=== PATIENT | female | born 2005 | race Caucasian/White ===

== ENCOUNTER 2024-05-08 09:39 | Outpatient (AMB) | payer BC, SELFPAY ==
--- NOTE | 2024-05-08 09:42 | A.OFFVIS_ITS ---
Vital Signs 05/08/24 09:44 Height 5 ft 5 in Weight 190 lb BMI 31.6 BP 114/70 Blood Pressure Location Lt brachial Position Sitting Pulse 83 Pulse Source Pulse Oximeter Pulse Oximetry (%) 97 Oxygen Delivery Method Room Air Intake Visit Reasons: Arthritis Intake Note: Patient presents today for back pain follow up, she would like a refill of Meloxicam today, she is having flare ups. Allergies No Known Allergies Allergy (Verified 05/08/24 09:51) HPI HPI Arthritis: Details: MS 30 minutes. She stopped practising for dancing that has improved back pain. Activity improves back pain. Prolonged rest worsens back pain. She had exacerbation of back pain after new year's when she arched back for [employer] video. She took meloxicam 15 mg with benefit. She is currently not self medicating. She did not complete physical therapy. She had an MRI pelvis over the summer but I do not have results. PFSH Medical History (Updated 05/08/24 @ 16:19 by Micheal Cooney MD) Back pain Surgical History (Updated 05/08/24 @ 09:54 by Pamela Macario CMA) [place] teeth removed Review of Systems Const All systems reviewed & are unremarkable except as noted in HPI and below Physical Exam Vital Signs: Last Vital Signs Pulse 83 05/08/24 09:44 BP 114/70 05/08/24 09:44 Pulse Ox 97 05/08/24 09:44 Oxygen Delivery Method Room Air 05/08/24 09:44 BMI result Body Mass Index 31.6 Const Other: General: Comfortable CVS: RRR Respiratory: clear to auscultation bilaterally. Good respiratory effort Skin: No lesions seen MSK: Tender to palpate lower lumbar spinous process and paraspinal muscles. Good lumbar flexion. No SI joint tenderness. Negative CONNIE. No synovitis. Good range of motion of upper extremities and lower extremities. Assessment & Plan Assessment & Plan (1) Back pain: Comment: Inflammatory back pain, HLA B27 positive with normal inflammatory markers. She response to meloxicam 15 mg prn. X-ray SI joints are normal. She had an MRI pelvis over the summer, which I do not have results of for further workup of axial inflammatory arthritis. She also has sacralization of right L5 transverse process and localized pain to paraspinal muscles suggesting myofascial strain, which could be contributing to back pain. She has not completed PT. Code(s): M54.9 - Dorsalgia, unspecified Category: Medical Qualifiers: Back pain location: low back pain Chronicity: chronic Back pain laterality: bilateral Sciatica presence: without sciatica Qualified Code(s): M54.50 - Low back pain, unspecified; G89.29 - Other chronic pain Plan: I will check inflammatory markers this visit PT ordered for back strengthening She will use meloxicam 15 mg daily PRN back pain Apply heat to back daily Return to clinic in 3 months Orders: Orders PT Evaluation and Treatment Today M54.9 - Dorsalgia, unspecified C Reactive Protein Today M54.9 - Dorsalgia, unspecified Alanine Aminotransferase Today M54.9 - Dorsalgia, unspecified Aspartate Amino Transferase Today M54.9 - Dorsalgia, unspecified Complete Blood Count Auto Diff Today M54.9 - Dorsalgia, unspecified Creatinine Today M54.9 - Dorsalgia, unspecified Erythrocyte Sedimentation Rate Today M54.9 - Dorsalgia, unspecified Medications: New meloxicam 15 mg PO DAILY PRN 30 tabs 1RF back pain Coding Level of Care Code Est Pt Level 4 (08438) Complex EM visit Add On G2211 Diagnoses Chronic bilateral low back pain without sciatica M54.50; G89.29 Back pain location: low back pain Chronicity: chronic Back pain laterality: bilateral Sciatica presence: without sciatica
[2024-05-08 09:44] VITALS: BP 114/70; PULSE 83; O2SAT 97; BMI 31.6
== END 2024-05-08 10:34 | disposition home or self-care (01) ==
PROVIDERS: PCP Nurse Practitioner Adult Health; Visit Provider Internal Medicine Rheumatology
DX: M54.50 Low back pain, unspecified (principal); G89.29 Other chronic pain
CPT/HCPCS: 99214

== ENCOUNTER 2024-05-08 09:39 | Outpatient (REF) | payer BC, SELFPAY ==
[2024-05-08 17:22] LABS: MANUAL DIFF FLAG NO
[2024-05-08 17:29] LABS: Basophils Percent Auto 0.5 % (0-2); Eosinophils Absolute Auto 0.1 X10*3/uL (0.0-0.4); Eosinophils Percent Auto 1.2 % (0-4); Hematocrit 40.4 % (37.0-47.0); Hemoglobin 13.4 g/dl (12.0-16.0); Imm Gran Abs Auto 0.06 X10*3/uL (0.00-0.03); Imm Gran Pct Auto 0.8 % (0.0-0.4); Lymphocytes Absolute Auto 2.5 X10*3/uL (1.2-4.9); Lymphocytes Percent Auto 32.3 % (20-40); Mean Corpuscular HGB Conc 33.2 g/dl (31.0-35.0); Mean Corpuscular Hemoglobin 28.7 pg (27.0-33.0); Mean Corpuscular Volume 86.5 fL (80.0-98.0); Mean Platelet Volume 10.8 fL (9.4-12.3); Monocytes Absolute Auto 0.5 X10*3/uL (0.1-1.2); Monocytes Percent Auto 6.2 % (2-11); Neutrophils Absolute Auto 4.5 x10*3/uL (2.0-8.3); Platelet Count 301 X10*3/uL (160-400); Red Blood Count 4.67 X10*6/uL (4.20-5.50); Red Cell Distribution Width 13.1 % (11.0-16.0); White Blood Count 7.6 X10*3/uL (4.8-10.8)
[2024-05-08 17:37] LABS: Alanine Aminotransferase 11 U/L (0-31); Aspartate Amino Transferase 19 U/L (5-31); C Reactive Protein 0.92 mg/dL (< or = 0.50); Estimated Glomerular Filt Rate > 60
[2024-05-08 18:09] LABS: Erythrocyte Sedimentation Rate 12 MM/HR (0-20)
== END 2024-05-08 09:40 | disposition home or self-care (01) ==
LOC: HO.HKASLDS 09:39
PROVIDERS: PCP Nurse Practitioner Adult Health; Visit Provider Internal Medicine Rheumatology
DX: M54.9 Dorsalgia, unspecified (principal)
CPT/HCPCS: 36415; 82565; 84450; 84460; 85025; 85652; 86140

== ENCOUNTER 2024-06-22 10:00 | Outpatient (RCR) | payer BC, SELFPAY ==
--- NOTE | 2024-06-08 11:42 | MHC.PT.EP ---
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 Cooney[facility] for treatment of dorsalgia. Date of referral , Dorsalgia referred to PT by Micheal Cooney date of referral 05/08/2024 Pt currently taking meloxicam prn due to elevated inflammatory markers, is being followed due to family history. Pt had xrays (see results above). Pt exhibits (+) lumbar instability testing, hypermobility of the L/S, tightness and decreased mobility of upper back musculature. Pt reports recent strain of left lower back with sx on/off radiating to height of her buttocks following lifting a toddler while babysitting. Pt would benefit from attending skilled PT services 1-2x/week x 3-4 weeks to implement a lumbar stab program, self care, and HEP program. Post evaluation, body mechanics were reviewed, written HEP for gentle table slides: trunk flexion/scaption, posterior pelvic tilts in sitting and hooklying were issued x 2 sets 5R x 3 sec hold, along with kneeling hip flexor stretch, prone quad stretch with strap. Pt verbalized positive response and carryover post instruction/education. Due to previous history of having therapy and familiarity with exercise program pt may not need many visits to achieve her goals. Frequency and Duration: The patient will be seen 1-2x/week x 3-4 weeks Short Term Goals: 1. Initiate self care/HEP program management. 2. Pt will demonstrate body mechanics awareness in regard to ADLS/IADLs. 3. Pt will initiate strength of lumbar hip ext by 4+/5. 4. Increase hip flexor flexibility by 50%. Radiation Therapy Technologist Goals: 1. Negative lumbar instability testing. 2. Strength hip abductors to 5/5. 3. Pt will increase strength hip ext 5/5 B. 4. Pt will report 75% pressure in back pain with ADLs/IADLS. Treatment Plan: Modalities to reduce pain, spasms and effusion. Manual therapy to restore motion and function. Therapeutic exercise to improve strength and flexibility. Neuromuscular re-education for posture and balance. Therapeutic activities to return to functional activities of daily living. Electronically signed by: Liat Menard PT, DPT Please sign and return to therapist. Thank you for your referral.
== END 2025-01-17 15:07 | disposition home or self-care (01) ==
LOC: HO.PTWFD 10:00
PROVIDERS: PCP Nurse Practitioner Adult Health; Visit Provider Internal Medicine Rheumatology
DX: M54.9 Dorsalgia, unspecified (principal)
CPT/HCPCS: 97110; 97161; 97535

== ENCOUNTER 2024-08-15 09:01 | Outpatient (AMB) | payer BC, SELFPAY ==
--- NOTE | 2024-08-15 09:05 | MHC.OFFVIS ---
Vital Signs 08/15/24 09:08 Height 5 ft 5 in Weight 205 lb 11.06 oz BMI 34.2 BP 140/70 H Blood Pressure Location Rt brachial Position Sitting Pulse 76 Pulse Oximetry (%) 100 Oxygen Delivery Method Room Air Intake Visit Reasons: 3 mo follow up Intake Note: Patient presents today for back pain follow up. 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 She feels increased pain after baby-sitting. She has to lift a 3-year-old who weighs 50 lb repetitively. Morning stiffness is none. She does not have an nocturnal back pain. Increased pain with prolonged standing. She feels pain when she is standing for a long period of time in the mall. 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 She initially started physical therapy but due to [facility] physical therapy and [place] location being changed to [place] she was unable to continue. She sometimes has left SI joint pain. She denies joint swelling, dactylitis, iritis, bloody stools. [facility] Medical History Back pain Surgical History [place] teeth removed Review of Systems Const All systems reviewed & are unremarkable except as noted in HPI and below Physical Exam Vital Signs: Last Vital Signs Pulse 76 08/15/24 09:08 BP 140/70 H 08/15/24 09:08 Pulse Ox 100 08/15/24 09:08 Oxygen Delivery Method Room Air 08/15/24 09:08 BMI result Body Mass Index 34.2 Const Other: General: Comfortable CVS: RRR Respiratory: clear to auscultation bilaterally. Good respiratory effort Skin: No lesions seen MSK: No tenderness of lumbar spinous process or paraspinal muscles. No tenderness of thoracic spinous process or cervical spinous process. Normal lumbar flexion. No SI joint tenderness. Negative CONNIE. Normal range of motion of cervical spine. No synovitis. Normal range of motion of upper extremities and lower extremities. Assessment & Plan Assessment & Plan (1) Back pain: Comment: Likely multifactorial to L5-S1 sacralization, myofascial strain and mild activity from ankylosing spondylitis (mild inflammatory back pain, HLA B27 positive with recent development of mild elevation in CRP on labs from April 2024). Currently her back pain is aggravated with repetitive lifting of toddler. I recommend conservative management with physical therapy to improve back strength and for her to use meloxicam more regularly to control back pain. Previously she had normal inflammatory markers. She has response to meloxicam 15 mg prn. X-ray SI joints are normal. She had an MRI pelvis over the summer, which I do not have results of for further workup of axial inflammatory arthritis. She also has sacralization of right L5 transverse process. Code(s): M54.9 - Dorsalgia, unspecified Category: Medical Qualifiers: Back pain location: low back pain Chronicity: chronic Back pain laterality: bilateral Sciatica presence: without sciatica Qualified Code(s): M54.50 - Low back pain, unspecified; G89.29 - Other chronic pain Plan: I will check inflammatory markers this visit PT ordered for back strengthening to be done in [place] per patient's request She will use meloxicam 15 mg daily PRN back pain. I will check kidney and liver function next visit for drug monitoring on chronic NSAID MRI pelvis report requested Return to clinic in 3 months (2) Ankylosing spondylitis: Code(s): M45.9 - Ankylosing spondylitis of unspecified sites in spine Category: Medical Qualifiers: Ankylosing spondylitis location: unspecified site of spine Qualified Code(s): M45.9 - Ankylosing spondylitis of unspecified sites in spine Plan: See above Orders: Orders Erythrocyte Sedimentation Rate Today Z79.899 - Other pen[facility]iary (current) drug therapy C Reactive Protein Today Z79.899 - Other long term care phlebotomist (current) drug therapy Coding Level of Care Code Est Pt Level 4 (17069) Complex EM visit Add On G2211 Diagnoses Chronic bilateral low back pain without sciatica M54.50; G89.29 Back pain location: low back pain Chronicity: chronic Back pain laterality: bilateral Sciatica presence: without sciatica Ankylosing spondylitis, unspecified site of spine M45.9 Ankylosing spondylitis location: unspecified site of spine
[2024-08-15 09:08] VITALS: BP 140/70; PULSE 76; O2SAT 100; BMI 34.2
--- OUTSIDE RECORDS SUMMARY | 2024-08-15 09:44 | XMS_ITS | Clinical Summary ---
Author Organization [facility] Address [address] [place] [phone] Phone Care Team Providers Care Go Cart Mechanic Name Role Phone Unavailable Primary Care Provider Unavailabl e Allergies No known active allergies Medications AMITIZA 24 MCG capsule Take 1 tablet by mouth 2 (two) times a day. 05/19/19 19 Active bisacodyl 5 MG EC tablet Take 2 tablets prior to drinking MiraLAX for cleanout 06/26/19 20 Active ondansetron ODT 4 MG disintegrating tablet 06/22/19 20 Active diclofenac 75 MG EC tablet 07/27/19 21 Active diclofenac 75 MG EC tablet Take 75 mg by mouth. 07/01/19 21 Active etonogestrel-ethin yl estradiol 0.12-0.015 MG/24HR vaginal ringIndications:En counter for initial prescription of vaginal ring hormonal contraceptive Insert vaginally and leave in place for 3 consecutive weeks, then remove for 1 week. 1 each 12 01/16/20 22 Active spironolactone 100 MG tabletIndications: Acne vulgaris TAKE ONE TABLET BY MOUTH DAILY. 30 tablet 5 01/27/20 22 Active Active Problems Problem Noted Date Diagnosed Date Sprain of calcaneofibular ligament of right ankl e 12/09/2020 Overview (06/27/2021): also deltoid ligament, persisting, inadequate splinting. Seen by sports medicine fall 2020 and now in a lace-up ankle boot and back to dance 03/2021 after completing PT for this over the fall Assessment & Plan (12/09/2020 11:46 AM EDT): Needs to go to PT, use air cast for now, recheck 2-3 weeks. No dancing until recheck. Use ice, motrin for pain Oligomenorrhea 11/09/2018 Overview (11/09/2018): Likely due to PCOS, on OCPs. Assessment & Plan (06/10/2019 9:38 PM EST): Doing well on OCPs, has refills to continue on this mediation regime at this time, f/u if sx change/worsen PRN. Irritable bowel syndrome with constipation 08/06 Overview (06/10/2019): Followed by GI since 01/2018. Last seen 07/14/2018. Labs normal. Chronic constipation and functional dyspepsia also contributing. Hyoscyamine used prn. On 07/31/2018 hypnotherapy recommended, as medications were ineffective. Pt saw Dr. Knott for this but not effective. Told to follow up with GI but has not yet. Feels she is on medications which usually don't help but hasn't pursued further evaluation/treatment. Assessment & Plan (06/10/2019 9:29 PM EST): Overdue for follow up - needs to see GI back re: this ongoing concern, mom agreeable to plan. Assessment & Plan (02/08/2019 3:15 PM EDT): IBS doing better, with self hypnosis and amitiza Assessment & Plan (01/19/2019 5:09 PM EDT): Has been in good control Assessment & Plan (11/23/2018 9:35 AM EDT): Doing well. Assessment & Plan (11/08/2018 5:13 PM EDT): Keep up the good work. You are improving. Practice with your new recording. Keep a Comfort Diary. For cramps you can take mint drops or mint tea. Take the probiotic Assessment & Plan (10/18/2018 5:31 PM EDT): Is intricately connected to school anxiety. Worries about having to poop and/or being sick in school. Instructions: Practice with Your hypnosis recording daily. Assessment & Plan (09/19/2018 2:59 PM EDT): Not in good control, probably because of anxiety. I would begin an antacid, famotidine, twice a day, because of the heartburn pain you also get, and because famotidine has found to be effective for IBS. Also answer these questions: 1. How will your life be different when you are no longer having those stomach pains? 2. In what ways can you be kind to yourself? 3. How does your body feel when you are happy/relaxed? Keep a stool calendar. Stop miralax. Take Flaxseed oil (mix with yoghurt, keep in fridge), 1 tbspn, and flaxseed, one tsp daily. And take Align, 1 cap a day. Acne vulgaris 10/18/2017 Overview (06/09/2018): S/P Derm Consult for Acne. S/PMinocin 100mg BID, Tretinoin 0.025% qhs, Duac qam to face and qhs to torso recommend but burned so not taking. 05/03/2017: OCP started. No improvement. Referred back to derm 05/2018. Assessment & Plan (12/26/2020 6:14 PM EDT): OCP not a good option because forgets to take them. Nexplanon side effect profile is undesirable for her needs. After extensive discussion, we decided on NuvaRing. Discussed risks, benefits, alternatives, proper use. Urine hcg negative. Can start NuvaRing on the Tuesday following next menses. F/u in 2 mo. Assessment & Plan (11/09/2018 9:23 AM EDT): Will change her OCP to higher estrogen. Will add spironolatone (to block testosterone). Will do adapalene cream (instead of gel), but if not covered, coupon given to mom. Advised to use non-comedogenic make-up. F/u with PCP, but can come back to derm clinic if needed. Assessment & Plan (11/08/2018 5:12 PM EDT): To See Nataliia tomorrow Assessment & Plan (09/19/2018 3:02 PM EDT): Has tried many creams, the pill, still an issue ?because of anxiety. See Nataliia Galicia Assessment & Plan (06/09/2018 8:33 AM EST): Referred to Derm. Assessment & Plan (03/03/2018 8:27 AM EST): Start OCP Assessment & Plan (02/14/2018 3:54 PM EDT): Consult for OCP if desired. Generalized anxiety disorder 08/19/2017 Overview (07/21/2018): S/P therapy and Prozac [id number] (discontinued in the summer 2017 by Carol because she was feeling better), continued to do well with start of high school so stayed off until 06/2018 when family requested a restart due to increasing anxiety. Prozac was prescribed again on 06/27/2018, 10 mg daily for a week then increased to 20mg daily. Therapy was also restarted at [facility] ([place]). Carol requested a change in medication on 07/21/2018 due to intolerance (made it difficult to concentrate, messes with my head as well as worsening abd pain and nausea) and ineffectiveness. Plan is to decrease Prozac to 10mg for 5 days then stop and start Zoloft 25mg. Assessment & Plan (06/10/2019 9:36 PM EST): Not currently on any medication and negative screen today - has therapist (same as noted) whom she sees for regular therapy. Continue to follow up with therapist. Has failed on several medications so if wishes to star medication again would pursue medication evaluation and look for psychiatrist to manage given issues in the past. Assessment & Plan (02/09/2019 11:35 AM EDT): Did not tolerate non SSRI antidepressant either with apparently dramatic side effects. Now doing better now that is not in school. While not optimal, she does socialize in dance class, and will continue her education. Assessment & Plan (01/23/2019 1:14 PM EDT): Freezes when going to school but unaware of the thoughts and feelings that go with it. Mostly is school phobia Since had trouble with SSRI's will begin a non SSRI, effexor, follow up in two weeks. Discussed. Should see her in two weeks. Assessment & Plan (11/23/2018 2:43 PM EDT): Doing great now off of all meds, had side effects with 3 SSRI's. Though has a positive SCARED. Suggested gradual re-emersion in thoughts of school, beginning with the parts she LIKES: Seeing friends, bhutanese class, lunch. Would suggest she do her reading. Practice Your meditations. See [facility] Assessment & Plan (11/08/2018 5:16 PM EDT): You had side effects with meds so try fish oil, several caps a day with food, a natural supplement that can help mood, and see [facility], practice relaxation, get fresh air, exercise, remember how you conquered the roller coasters at [facility]! Assessment & Plan (10/18/2018 5:33 PM EDT): No real change on lexapro, but better since is out of school. Will have to learn to embrace anxiety like an unwanted but ever present investigations manager, and go to school to really get over it. Addressing IBS with behavioral means can be a back door way of helping with anxiety Assessment & Plan (09/19/2018 3:01 PM EDT): Having side effects on zoloft, and anxiety not under control. Will switch to lexapro. Stop zoloft. Will call therapist. Think of a name to call your anxiety. Read Carol Plays with her anxiety Parents to read Anxious Kids, Anxious Parents both by Cathy Zavaleta and Jakub Rhodes Assessment & Plan (07/21/2018 2:36 PM EDT): Decrease Prozac to 10mg for 5 days then stop and start Zoloft 25mg . Phone update with me 08/01/2018. F/U to be determined after that. Continue regular therapy. Assessment & Plan (06/27/2018 2:12 PM EST): Back in therapy in [place], going every other to every week. Will restart Fluoxetine at 10 mg for 5 days and then increase to 20,g will keep appointment with Dr. Toro on 07/21/18 Assessment & Plan (02/14/2018 3:55 PM EDT): Observe off medication and without therapy. Assessment & Plan (10/18/2017 5:39 PM EDT): Continue Prozac 20 mg 1.5 tab daily. Find a new therapist. Overweight 12/19/2012 Overview (10/18/2017): Overweight (278.02) Onset: 12/19/2012 Added by: Claire Toro Assessment & Plan (02/09/2019 11:36 AM EDT): She and mom don't understand why she is overweight since she is so active in dance. I explained that exercise only contributes a third to one's wt, diet accounts for 2/3. Nutritional counseling given. Assessment & Plan (11/09/2018 9:26 AM EDT): Needs labs at next well visit - glucose/hgb A1c, cholesterol, possible AST/ALT. Discussed with mom and Dr. Emeli esteban. Assessment & Plan (02/14/2018 3:56 PM EDT): Discussed diet and exercise. Resolved Problems Problem Noted Date Diagnosed Date Resolved Date Chronic low back pain without sciatica 07/21/2019 12/08/2021 Overview (06/27/2021): Seen by sports medicine Fall 2020 - worsened by dance, better with rest, working with PT minimally for this - had MRI done by sports medicine, has chronically been on and off, no sciatica or numbness/tingling/weakness Refused influenza vaccine 03/29/2019 Overview (06/10/2019): Refused again at 05/2019 School phobia 01/19/2019 12/08/2021 Overview (06/10/2019): Not attending school (noted by Dr. Knott 12/2018) Reported started at [facility] fall 2018, had done online program briefly, doing well 05/2019 (at ) Assessment & Plan (02/08/2019 3:14 PM EDT): Was considering [facility], but now taking on line HS, so issue irrelevant Assessment & Plan (01/19/2019 5:10 PM EDT): I feel [facility] would be a good alternative Other constipation 02/14/2018 Overview (08/06/2018): Diagnosed 01/2018. ED visit and GI consulted over the phone, recommended Miralax cleanout 16 caps in 64 ounces over 4-6 hours. Then seen by GI on 04/17/2018 for consult. Abd xray ordered due to abd tenderness, TSH, celiac labs ordered. Hyoscyamine 0.125 BID, miralax 1 cap BID, Ex Lax 1 sq BID, increased fiber recommended. ON 05/02 recurrence of abd pain and stool impaction so repeat cleanout with Miralax ordered CBC, amylase, lipase, ESR, CRP, CMP ordered. Admitted on 06/01 for Golytely cleanout and EGD/Colonoscopy, which was unremarkable. At recheck 07/14/2018 again impacted and Miralax cleanout recommended. Assessment & Plan (02/08/2019 3:16 PM EDT): Makes a drink of miralax when does not have bm Assessment & Plan (04/04/2018 12:26 PM EST): Recheck KUB consider Go-Lytely clean out in hospital. Assessment & Plan (03/28/2018 12:20 PM EST): Lactulose, Benefiber, increase fiber in diet. Call in 2 weeks. Assessment & Plan (02/14/2018 3:55 PM EDT): Use Miralax 1 capful twice daily for up to 6 days then consistently 1 cap daily for at least 6 weeks. Menorrhagia with regular cycle 02/14/2018 12/08/2021 Overview (06/09/2018): Hgb normal 02/14/2018. OCP's started 02/2019. Assessment & Plan (12/26/2020 6:14 PM EDT): OCP not a good option because forgets to take them. Nexplanon side effect profile is undesirable for her needs. After extensive discussion, we decided on NuvaRing. Discussed risks, benefits, alternatives, proper use. Urine hcg negative. Can start NuvaRing on the Tuesday following next menses. F/u in 2 mo. Assessment & Plan (11/08/2018 5:13 PM EDT): Remember to take your OCP's, but if you want, I can prescribe Depo, or consider Nexplanon. Assessment & Plan (06/09/2018 8:34 AM EST): Continue OCP. Assessment & Plan (02/14/2018 3:57 PM EDT): Check Hgb, consider further workup if low, consider OCP. Thoracic spine pain 10/27/2017 12/09/19 22 Overview (02/14/2018): Seen by ortho 02/2017. Xray ok. Aggressive PT recommended. She did go to PT and it helped. Seeing chiropractor now. Assessment & Plan (02/14/2018 3:56 PM EDT): Continue with chiropractor. Acne 10/18/2017 10/18/2017 Overview (10/18/2017): Derm Consult for Acne. Starting Minocin 100mg BID, Tretinoin 0.025% qhs, Duac qam to face and qhs to torso. Also recommended visit here to discuss OCP's. Immunizations Immunization Administration Dates Next Due COVID-19 Pfizer, monovalent, 12+ years 1,08/26/2020 COVID-19 Pfizer, sylvie-sucros e, 12+ years 12/08/2021(Deferred: Patient decision) DTaP 5 06/25/2008, 5,2003,10/01,2003 H1N1 07/01/2009 HPV Vaccine 9 Valent 06/27/2017,12/21/2016 Hep A, ped/adol 08/29/2012,07/03/2010 Hep B, ped/adol 03/06/2004,2003,2003 Hib (PRP-T) 09/02/2004, 4,2003,08/01 IPV 06/23/2007, 4,2003,08/01 Influenza, injectable, triva lent, preservative free 02/11/2005,04/22/2004,02/04/2004 MMR 06/25/2008,09/02/2004 Meningococcal B Trumenba 12/08/2021 Meningococcal Conj (Menactra) MCV4P 06/12/2020,0 12/16/2014 Pneumococcal Conjugate 06/03/2004,2003,2003,08/01 Tdap 12/16/2014 Varicella 06/23/2007,06/03/2004 Family History Medical History Relation Name Comments Anxiety disorder Father's Sister Depression Father's Sister Hearing loss Maternal Grandfather Hyperlipidemia Maternal Grandfather Hypertension Maternal Grandfather Obesity Maternal Grandfather Substance abuse Maternal Grandfather Thyroid disease Maternal Grandfather Diabetes Maternal Grandmother Hearing loss Maternal Grandmother Hyperlipidemia Maternal Grandmother Hypertension Maternal Grandmother Obesity Maternal Grandmother Allergic rhinitis Mother Heart disease (Premature) Mother's Brother Substance abuse Mother's Brother Allergic rhinitis Mother's Sister Diabetes Paternal Grandfather Hearing loss Paternal Grandfather Heart disease (Premature) Paternal Grandfather Hyperlipidemia Paternal Grandfather Hypertension Paternal Grandfather Obesity Paternal Grandfather Thyroid disease Paternal Grandfather Diabetes Paternal Grandmother Hyperlipidemia Paternal Grandmother Hypertension Paternal Grandmother Obesity Paternal Grandmother Relation Name Status Comments Father's Sister Maternal Grandfather Maternal Grandmother Mother Mother's Brother Mother's Sister Paternal Grandfather Paternal Grandmother Social History Tobacco Use Types Packs/Day Years Used Date Smoking Tobacco: Never Smokeless Tobacco: Never Alcohol Use Standard Drinks/Week Comments No 0 (1 standard drink = 0.6 oz pur e alcohol) Hunger/Food Answer Date Recorded In the last 12 months, did y ou or your family ever eat less than you felt you should because there wasn't enough money for food? No 12/08/2021 Stable Housing Answer Date Recorded Are you worried that in the next 2 months you may not have stable housing? No 12/08/2021 Transportation Concerns Answer Date Rec orded In the last 12 months, have you or your family ever had to go without healthcare because you didn't have a way to get there? No 12/08/2021 Hazards in Home Answer Date Recorded Think about the place you li ve. Do you have problems with any of the following? Pests (mice or roaches), mold, no/not working smoke detectors, water leaks, no window guards. No 2021 Financing Utilities Answer Date Recorde d In the last 12 months, has t he electric, gas, oil, or water company threatened to shut off your services in your home? No 12/08/2021 Safety at Home Answer Date Recorded Are you or your family worried about feeling saf e in your home? No 12/08/2021 Outside Support Answer Date Recorded Do you feel that you need mo re support from other people or programs to help you care for yourself or your family? No 12/08/2021 Understanding Health Concerns Answer Da te Recorded Do you need help understandi ng your or your child's healthcare needs (diagnosis, medications, plan, etc.)? No 12/08/2021 Financing Health Concerns Answer Date R ecorded In the last 12 months, was t here a time when your child needed to see a doctor or get medications or supplies but could not because of cost? No 12/08/2021 Missing School or Work Answer Date Mack rded Did you or your child miss s chool or work because of a health problem that could have been avoided? No 12/08/2021 Comments No Sex and Gender Information Value Date Recorded Sex Assigned at Female 06/12/2020 10:04 PM EST Legal Sex Female 6:27 PM EDT Gender Identity Female 06/12/2020 10:04 PM EST Sexual Orientation Straight 06/12/2020 10 :04 PM EST Last Filed Vital Signs Vital Sign Reading Time Taken Comments Blood Pressure 116/70 12/08/2021 8:17 AM EDT Pulse 96 12/08/2021 8:17 AM EDT Temperature 36.7 ??C (98.1 ??F) 12/08/2021 8:17 AM ED T Respiratory Rate - - Oxygen Saturation 99% 07/21/2018 1:52 PM EDT Inhaled Oxygen Concentration - - Weight 85.8 kg (189 lb 3.2 oz) 12/08/2021 8:17 A M EDT Height 165.1 cm (5' 5 ) 12/08/2021 8:17 AM EDT Body Mass Index 31.48 12/08/2021 8:17 AM EDT Plan of Treatment Health Maintenance Due Date Last Done Comments Men B Vaccine (2 of 2 - Trum enba SCDM 2-dose series) 06/10/2022 12/08/2021 Influenza Vaccines (#1) 2023 02/12/20, 04/22/2004, 02/04/2004 COVID-19 Vaccine (3 - 2023-2 5 season) 2023 09/16/2020, 08/26/2020 DTaP,Tdap,and Td Vaccines (7 - Td or Tdap) 12/16/2024 12/16/2014, 06/25/2008, 12/29/2004, Additional history exists Hepatitis B Vaccines Completed 03/06/2004, 2003, 2003 Pneumococcal Vaccine Completed 06/03/2004, 2003, 2003, Additional history exists HIB Vaccines Completed 09/02/2004, 11/23, 2003, Additional history exists IPV Vaccines Completed 06/23/2007, 02/23, 2003, Additional history exists Varicella Vaccines Completed 06/23/2007, 06/03/2004 MMR Vaccines Completed 06/25/2008, 09/02/2004 Hepatitis A Vaccines Completed 08/29/2012, 07/04/19 11 HPV Vaccines Completed 06/27/2017, 12/21/2016 Meningococcal Vaccine Completed 06/12/2020, 015 Procedures * Due to [place] [employer] law, this organization might not be sharing sensitive test results. Procedure Name Priority Date/Time Associated Diagnosis Comments CHLAMYDIA AND GONORRHEA, AMPLIFIED Routine 12/08/2021 9:15 AM EDT Encounter for screening examination for chlamydial infection from Last 3 Months or Most Recently Relevant to Health Maintenance Results * Due to [place] [employer] law, this organization might not be sharing sensitive test results. * Chlamydia and Gonorrhoea, Amplified (12/08/2021 9:15 AM EDT) Chlamydia Trachomatis, DNA Probe NEGATIVE (NEG) [facility] Comment: No Chlamydia Trachomatis RNA detected in this patient's sample ? (REFERENCE RANGE/NORMAL VALUE: NOT DETECTED) ? Note: This test uses survey analyst- mediated amplification method to detect rRNA from C. Trachomatis URINE GC AMP PROBE NEGATIVE (NEG) [facility] Comment: No Neisseria Gonorrhoeae RNA detected in this patient's sample ? (REFERENCE RANGE/NORMAL VALUE: NOT DETECTED) ? NOTE: This test uses survey analyst-mediated amplification method to detect rRNA from N.Gonorrhoeae. A negative result does not preclude infection. In the case of a negative urine result, testing of an endocervical(female) or urethral (male) specimen is recommended if there is high clinical suspicion of infection. Due to very high sensitivity of Nucleic Acid Amplification Test, false positive results may occur. Therefore, specimen handling is extremely important. In patients in whom the disease is unlikely, additional sample for testing should be considered after an initial positive result. The performance characteristics of this test have not been evaluated in children. The Aptima Combo2 assay is not intended for the evaluation of suspected sexual abuse or for other medico-legal indications. The ordering provider should assess if the patient had consensual sex without risk of sexual abuse. Consult the [facility] if needed. Contact phone number . Therapeutic failure or success cannot be determined with the Aptima Combo2 assay since nucleic acid may persist following appropriate antimicrobial therapy. The Centers for Disease Control and Prevention (CDC) recommends confirmatory retesting using culture or a different nucleic acid amplification test when positive results occur, if indicated. Testing performed or reported by [facility], a Service of [facility], [address] [place] [address] Evin Licea MD, Straightening Roll Operator [facility]# [id number] Urine (Urine) 12/08/2021 9:1 5 AM EDT 12/08/2021 7:58 PM EDT us Hilaria Nguyen MD LAB MICROBIOLOGY - GENERAL O RDERABLES Final Result [facility] from Last 3 Months or Most Recently Relevant to Health Maintenance Insurance [facility] HMO [facility] HMO
--- OUTSIDE RECORDS SUMMARY | 2024-08-15 09:44 | XMS_ITS ---
Author Name [facility] Organization Unknown History of Medication Use Medication Directions Dispensed Refills Start Date End Date Stat us senna (SENOKOT) 8.6 mg tablet Take 2 tablets by mouth daily 05/01/2024 active LINZESS 72 mcg Capsule capsule TAKE ONE CAPSULE BY MOUTH DAILY 04/23/2024 active linaCLOtide (LINZESS) 72 mcg Capsule Take 72 mcg by mouth daily 06/21/2023 04/23/2024 active imiquimod (ALDARA) 5 % cream 01/27/2023 active lubiprostone (AMITIZA) 24 MCG capsule TAKE ONE CAPSULE (24 MCG) BY MOUTH TWO TIMES A DAY WITH MEALS. 08/31/2021 active ELURYNG 0.12-0.015 mg/24 hr vaginal ring 05/22/2021 act carlos a etonogestreL-ethinyl estradioL (NUVARING) 0.12-0.015 mg/24 hr vaginal ring Insert vaginally and leave in place for 3 consecutive weeks, then remove for 1 week. 12/26/2020 12/27/2021 active diclofenac sodium 75 MG delayed release tablet 06/30/2020 active iron-vit C-vit D58-cvsma acid (IRON 100 PLUS) 580-565-14-1 cs-hf-wau-mg Tablet Take by mouth 06/09/2020 ac tive iron-vit C-vit U66-bofyz acid (IRON 100 PLUS) 474-948-90-1 xh-mp-msl-mg Tablet Take by mouth 06/09/2020 ac tive multivitamin-folic acid-biotin (GGTS-DIJI-WWWAC, BV-FN-ZQJNEX,) 400-2,000 mcg Tablet Take by mouth 06/09/2020 a ctive bisacodyL (DULCOLAX, BISACODYL,) 5 mg EC tablet Take 2 tablets prior to drinking MiraLAX for cleanout 06/26/2019 active spironolactone (ALDACTONE) 100 MG tablet 06/13/2019 active Problems Problem Status Onset Date Problem Type Date of Resolution Source Constipation, unspecified constipation type active EncounterDiagnosisAct C [facility] Encounters Encounter Type Encounter Reason Primary Diagnosis Location Date Ambulatory Constipation, unspecified Constipation, unspecified [facility] 07/02/2024 Ambulatory Constipation, unspecified Constipation, unspecified [facility] 05/01/2024 Ambulatory Constipation, unspecified Constipation, unspecified [facility] 10/21/2023 Ambulatory Constipation, unspecified Constipation, unspecified [facility] ([facility] 06/21/2023 [address]ulatory [facility] 12/16/2021 Ambulatory [facility] 05/25/2021 Care Team Organization Name Specialty Phone Email Start Date End Da te [facility] 06/21/2023 [facility] 06/21/2023 [facility] 12/24/2021
--- OUTSIDE RECORDS SUMMARY | 2024-08-15 09:44 | XMS_ITS | Encounter Summary ---
Author Organization [facility] Address [address] [place] [address] Phone Care Team Providers Care Building Coordinator Name Role Phone Hilaria Nguyen MD Primary Care Provider + [phone] Reason for Visit * Reason Comments Med Refill Encounter Details Date Type Department Care Team (Late st Contact Info) Description 09/07/2018 Refill [facility] - [place] [address] [place] [address] Claire Toro MD [address] [place] [address] Generalized anxiety disorder Social History Tobacco Use Types Packs/Day Years Used Date Smoking Tobacco: Never Smokeless Tobacco: Never Alcohol Use Standard Drinks/Week Comments No 0 (1 standard drink = 0.6 oz pur e alcohol) Comments No Sex and Gender Information Value Date Recorded Sex Assigned at Female 06/12/2020 10:04 PM EST Legal Sex Female 6:27 PM EDT Gender Identity Female 06/12/2020 10:04 PM EST Sexual Orientation Straight 06/12/2020 10 :04 PM EST documented as of this encounter Miscellaneous Notes * Telephone Encounter - Liz Kendall RN - 09/07/2018 9:55 AM EDT Transferred to Dr Knott per mom documented in this encounter Plan of Treatment Not on file documented as of this encounter Visit Diagnoses Diagnosis Generalized anxiety disorder documented in this encounter Care Teams Building Coordinator Relationship Specialty Start Date End Date Hilaria Nguyen MD [address] [place] [address] PCP - General Pediatrics 12/21/22 05/18/23 documented as of this encounter
--- OUTSIDE RECORDS SUMMARY | 2024-08-15 09:44 | XMS_ITS | Encounter Summary ---
Author Organization [facility] Address [address] [place] [address] Phone Care Team Providers Care Elevator Service Technician Name Role Phone Hilaria Nguyen MD Primary Care Provider + [phone] Reason for Visit * Reason Comments Med Refill Encounter Details Date Type Department Care Team (Late st Contact Info) Description 08/12/2018 Refill [facility] - [place] [address] [place] [address] Claire Toro MD [address] [place] [address] Generalized anxiety disorder Social History Tobacco Use [...] encounter Miscellaneous Notes * Telephone Encounter - Lesa Rashid LPN - 08/23/2018 11:44 AM EDT No f/up appt noted. LMOVM to mom's identified line requesting call office update and appt. * Telephone Encounter - Claire Toro MD - 08/18/2018 5:13 PM EDT I will refill but needs a recheck with me within 1 week. * Telephone Encounter - Liz Kendall RN - 08/17/2018 10:22 AM EDT Spoke with mom who reports that they tried to call on the but were unable to get through at that time. Called back another day and was told Dr Toro was on vacation for two weeks. Mom reports Carol is the same. No better. No worse Denies side effects. Mom also says she called about recommendations from GI regarding referral for hypnotism. I do not see any note in chart concerning this. Mom requesting referral to Dr Martir Centeno [facility] for hypnotism. #phone [phone] # fax [phone] . Mom requesting refill on Zoloft ( she has a few left). To Dr Toro for review tomorrow morning. * Telephone Encounter - Claire Toro MD - 08/16/2018 2:07 PM EDT Please get clinical update on how Carol is doing on the Sertraline 25mg. She did not call as instructed on 08/01/2018 as far as I can tell. She needs an appt with me before she runs out of medication. * Telephone Encounter - Liz Kendall RN - 08/14/2018 11:07 AM EDT It is not clear if Carol spoke with Dr Toro on 08/01/18 or not. ? Follow up needed. Request for refill to Dr Toro for review tomorrow. documented in this encounter Plan of Treatment Not on file documented as of this encounter Visit Diagnoses Diagnosis Generalized anxiety disorder documented in this encounter Care Teams Elevator Service Technician Relationship Specialty Start Date End Date Hilaria Nguyen MD [address] [place] [address] PCP - General Pediatrics 12/21/22 05/18/23 documented as of this encounter
--- OUTSIDE RECORDS SUMMARY | 2024-08-15 09:44 | XMS_ITS | Encounter Summary ---
Author Organization [facility] Address [address] [place] [address] Phone Care Team Providers Care Scale Adjuster Name Role Phone Hilaria Nguyen MD Primary Care Provider + [phone] Reason for Visit * Reason Onset Date Comments Med Refill 01/11/2021 Encounter Details Date Type Department Care Team (Late st Contact Info) Description 01/11/2021 Refill [facility] [address] [address] Abril Burnett NP Acne vulgaris Social History Tobacco Use Types Packs/Day Years Used Date Smoking Tobacco: Never Smokeless Tobacco: Never Alcohol Use Standard Drinks/Week Comments No 0 (1 standard drink = 0.6 oz pur e alcohol) Hunger/Food Answer Date Recorded In the last 12 months, did y ou or your family ever eat less than you felt you should because there wasn't enough money for food? No 06/12/2020 Stable Housing Answer Date Recorded Are you worried that in the next 2 months you may not have stable housing? No 06/12/2020 Transportation Concerns Answer Date Rec orded In the last 12 months, have you or your family ever had to go without healthcare because you didn't have a way to get there? No 06/12/2020 Hazards in Home Answer Date Recorded Think about the place you li ve. Do you have problems with any of the following? Pests (mice or roaches), mold, no/not working smoke detectors, water leaks, no window guards. No 2020 Financing Utilities Answer Date Recorde d In the last 12 months, has t he electric, gas, oil, or water company threatened to shut off your services in your home? No 06/12/2020 Safety at Home Answer Date Recorded Are you or your family worried about feeling saf e in your home? No 06/12/2020 Outside Support Answer Date Recorded Do you feel that you need mo re support from other people or programs to help you care for yourself or your family? No 06/12/2020 Understanding Health Concerns Answer Da te Recorded Do you need help understandi ng your or your child's healthcare needs (diagnosis, medications, plan, etc.)? No 06/12/2020 Financing Health Concerns Answer Date R ecorded In the last 12 months, was t here a time when your child needed to see a doctor or get medications or supplies but could not because of cost? No 06/12/2020 Missing School or Work Answer Date Mack rded Did you or your child miss s chool or work because of a health problem that could have been avoided? No 06/12/2020 Comments No Sex and Gender Information Value Date Recorded Sex Assigned at Female 06/12/2020 10:04 PM EST Legal Sex Female 6:27 PM EDT Gender Identity Female 06/12/2020 10:04 PM EST Sexual Orientation Straight 06/12/2020 10 :04 PM EST documented as of this encounter Miscellaneous Notes * Telephone Encounter - Heidy Morris LPN - 01/12/2021 2:23 PM EDT Portal message requesting refill spironolactone 100mg. EH documented in this encounter Plan of Treatment Not on file documented as of this encounter Visit Diagnoses Diagnosis Acne vulgaris Other acne documented in this encounter Care Teams Scale Adjuster Relationship Specialty Start Date End Date Hilaria Nguyen MD [address] [place] [address] PCP - General Pediatrics 12/21/22 05/18/23 documented as of this encounter
--- OUTSIDE RECORDS SUMMARY | 2024-08-15 09:44 | XMS_ITS | Encounter Summary ---
Author Organization [facility] Address [address] [place] [address] Phone Care Team Providers Care Crm Technical Lead Name Role Phone Hilaria Nguyen MD Primary Care Provider [phone] Encounter Details Date Type Department Care Team (Late st Contact Info) Description 11/16/2010 Conversion Encounter Pediatric [facility] Adolescent Medicine - [address] [address] Social History Tobacco Use Types Packs/Day Years Used Date Smoking Tobacco: Never Assessed Comments Unknown Sex and Gender Information Value Date Recorded Sex Assigned at Female 06/12/2020 10:04 PM EST Legal Sex Female 6:27 PM EDT Gender Identity Female 06/12/2020 10:04 PM EST Sexual Orientation Straight 06/12/2020 10 :04 PM EST documented as of this encounter Plan of Treatment Not on file documented as of this encounter Visit Diagnoses Not on filedocumented in this encounter Care Teams Crm Technical Lead Relationship Specialty Start Date End Date Hilaria Nguyen MD [address] [place] [address] PCP - General Pediatrics 12/21/22 05/18/23 documented as of this encounter
== END 2024-08-15 09:40 | disposition home or self-care (01) ==
LOC: HO.RHES 09:01
PROVIDERS: PCP Nurse Practitioner Adult Health; Visit Provider Internal Medicine Rheumatology
DX: M54.50 Low back pain, unspecified (principal); G89.29 Other chronic pain; M45.9 Ankylosing spondylitis of unspecified sites in spine
CPT/HCPCS: 99214

== ENCOUNTER 2024-08-15 09:01 | Outpatient (REF) | payer BC, SELFPAY ==
--- OUTSIDE RECORDS SUMMARY | 2024-08-15 10:54 | XMS_ITS | Encounter Summary ---
Author Organization [facility] Address [address] [place] [address] Care Team Providers Care Ambulette Driver Name Role Phone System, Provider Not In DO Primary Care Provider Unavailable Eda Hernandez TIER LIFT OPERATOR Primary Care Provider [phone] Reason for Visit * Reason Comments Medication Refill Encounter Details Date Type Department Care Team (Late st Contact Info) Description 07/01/2021 Refill [facility] G[facility]ology, [place] [address] [place] [address] Margarita French MD [address] [place] [address] Constipation, unspecified constipation type Social History Tobacco Use Types Packs/Day Years Used Date Smoking Tobacco: Never Smokeless Tobacco: Never Comments No Sex and Gender Information Value Date Recorded Sex Assigned at Not on file Legal Sex Female 9:56 AM EST Gender Identity Not on file Sexual Orientation Not on file documented as of this encounter Miscellaneous Notes * Telephone Encounter - Mar Gardiner RN - 07/02/2021 1:40 PM EST Last visit: 05/25/21 Next visit: 12/24/21 Weight: 84.8 kg Allergies: reviewed Current dose: Continue Amitiza 1 pill daily documented in this encounter Plan of Treatment Not on file documented as of this encounter Visit Diagnoses Diagnosis Constipation, unspecified constipation type documented in this encounter Care Teams Ambulette Driver Relationship Specialty Start Date End Date System, Provider Not In, DO PCP - General Family Medicine 05/12/2306/20 Eda Hernandez NP [address] [place] [address] PCP - General 06/21/23 documented as of this encounter
--- OUTSIDE RECORDS SUMMARY | 2024-08-15 10:54 | XMS_ITS | Encounter Summary ---
Author Organization [facility] Address [address] [place] [address] Care Team Providers Care Switching Operator Name Role Phone Abril Burnett NP Primary Care Provider [phone] Martir Knott MD Primary Care Provider [phone] System, Provider Not In DO Primary Care Provider Unavailable Eda Hernandez POLLUTION CONTROL ENGINEER Primary Care Provider [phone] Reason for Visit * Reason Comments Medication Refill Encounter Details Date Type Department Care Team (Late st Contact Info) Description 10/22/2019 Refill [facility] Gastroenterology, [place] [address] [place] [address] Margarita French MD [address] [place] [address] Constipation, unspecified constipation type Social History Tobacco [...] Telephone Encounter - Mar Gardiner RN - 10/22/2019 11:32 AM EDT Last visit: 10/02/19 Next visit: No appt booked at this time. Please call to book an appt. 3-4 months Weight: 83.5 kg Allergies: reviewed Current dose: Amitiza 1 tab twice daily documented in this encounter Plan of Treatment Not on file documented as of this encounter Visit Diagnoses Diagnosis Constipation, unspecified constipation type documented in this encounter Care Teams Switching Operator Relationship Specialty Start Date End Date Abril Burnett NP PCP - General Nurse Practitioner 05/29/19 05/10/21 Martir Knott MD [address] [facility] [address] [place] [address] PCP - General General Pediatrics 05/11/21 05/11/21 System, Provider Not In, DO PCP - General Family Medicine 05/12/2306/20 Eda Hernandez NP [address] [place] [address] PCP - General 06/21/23 documented as of this encounter
--- OUTSIDE RECORDS SUMMARY | 2024-08-15 10:55 | XMS_ITS | Encounter Summary ---
Author Organization [facility] Address [address] [place] [address] Care Team Providers Care Air Cargo Ground Crew Supervisor Name Role Phone System, Provider Not In DO Primary Care Provider Unavailable Eda Hernandez BEAN ROASTER Primary Care Provider [phone] Reason for Visit * Reason Comments Medication Refill Encounter Details Date Type Department Care Team (Late st Contact Info) Description 06/01/2021 Refill [facility] Gastroenterology, [place] [address] [place] [address] Margarita French MD [address] [place] [address] Constipation, unspecified constipation type Social History Tobacco Use Types Packs/Day Years Used Date Smoking Tobacco: Never Smokeless Tobacco: Never Comments No Sex and Gender Information Value Date Recorded Sex Assigned at Not on file Legal Sex Female 9:56 AM EST Gender Identity Not on file Sexual Orientation Not on file documented as of this encounter Miscellaneous Notes * Telephone Encounter - Andreia Up RN - 06/04/2021 4:05 PM EST Mom called back regarding Amitiza Taking 1-2 pills daily. Sometimes only one, but 2 if needed. Per mom, that was Dr. French's recommendations. Can send script as it is. Any further questions, can call mom back. * Telephone Encounter - Mar Gardiner RN - 06/04/2021 3:31 PM EST Left message to verify script dose. * Telephone Encounter - Mar Gardiner RN - 06/01/2021 1:53 PM EST Last visit: 05/25/2021 Next visit: 12/24/2021 Weight: 84.8 kg Allergies: reviewed Current dose: Continue Amitiza 1 pill daily Left message for mom to return call to verify dose of Amitiza. documented in this encounter Plan of Treatment Not on file documented as of this encounter Visit Diagnoses Diagnosis Constipation, unspecified constipation type documented in this encounter Care Teams Air Cargo Ground Crew Supervisor Relationship Specialty Start Date End Date System, Provider Not In, DO PCP - General Family Medicine 05/12/2306/20 Eda Hernandez NP [address] [place] [address] PCP - General 06/21/23 documented as of this encounter
--- OUTSIDE RECORDS SUMMARY | 2024-08-15 10:55 | XMS_ITS | Encounter Summary ---
Author Organization [facility] Address [address] [place] [address] Phone Care Team Providers Care Cyber Ops Planner Name Role Phone Hilaria Nguyen MD Primary Care Provider [phone] Reason for Visit * Reason Onset Date Comments Med Refill 01/11/2021 Encounter Details Date Type Department Care Team (Late st Contact Info) Description 01/11/2021 Refill [facility] [place] [facility] [address] [address] Abril Burnett NP Acne vulgaris Social History [...] acne documented in this encounter Care Teams Cyber Ops Planner Relationship Specialty Start Date End Date Hilaria Nguyen MD [address] [place] [address] PCP - General Pediatrics 12/21/22 05/18/23 documented as of this encounter
--- OUTSIDE RECORDS SUMMARY | 2024-08-15 10:55 | XMS_ITS | Encounter Summary ---
Author Organization [facility] Address [address] [place] [address] Care Team Providers Care Cane Cutter Name Role Phone System, Provider Not In DO Primary Care Provider Unavailable Eda Hernandez PAYROLL AND BENEFITS COORDINATOR Primary Care Provider [phone] Reason for Visit * Reason Comments Medication Refill Encounter Details Date Type Department Care Team (Late st Contact Info) Description 08/01/2021 Refill [facility] Gastroenterology, [place] [address] [place] [address] Margarita French MD [address] [place] [address] Constipation, unspecified constipation type Social History Tobacco Use Types Packs/Day Years Used Date Smoking Tobacco: Never Smokeless Tobacco: Never Comments No Sex and Gender Information Value Date Recorded Sex Assigned at Not on file Legal Sex Female 9:56 AM EST Gender Identity Not on file Sexual Orientation Not on file documented as of this encounter Miscellaneous Notes * Telephone Encounter - Iveth Oates RN - 08/03/2021 8:18 AM EDT Last visit: 05/25/21 Next visit: 12/24/21 Weight: 84.8 kg Allergies: reviewed Current dose: Continue Amitiza 1 pill daily documented in this encounter Plan of Treatment Not on file documented as of this encounter Visit Diagnoses Diagnosis Constipation, unspecified constipation type documented in this encounter Care Teams Cane Cutter Relationship Specialty Start Date End Date System, Provider Not In, DO PCP - General Family Medicine 05/12/2306/20 Eda Hernandez NP [address] [place] [address] PCP - General 06/21/23 documented as of this encounter
--- OUTSIDE RECORDS SUMMARY | 2024-08-15 10:55 | XMS_ITS | Encounter Summary ---
Author Organization [facility] Address [address] [place] [address] Care Team Providers Care Glove Cuffer Name Role Phone Eda Hernandez NP Primary Care Provider [phone] Encounter Details Date Type Department Care Team (Late st Contact Info) Description 08/10/2024 Telephone [facility] Gastroenter[facility] [phone] Margarita French MD [address] [place] [address] Social History Tobacco Use Types Packs/Day Years Used Date Smoking Tobacco: Never Smokeless Tobacco: Never Comments No Sex and Gender Information Value Date Recorded Sex Assigned at Not on file Legal Sex Female 9:56 AM EST Gender Identity Not on file Sexual Orientation Not on file documented as of this encounter Miscellaneous Notes * Telephone Encounter - Margarita French MD - 08/10/2024 1:34 PM EDT Called Carol to discuss ARM results - c/w dyssynergic defecation. Would recommend pelvic floor physical therapy. No response. Left voicemail. documented in this encounter Plan of Treatment Not on file documented as of this encounter Visit Diagnoses Not on filedocumented in this encounter Care Teams Glove Cuffer Relationship Specialty Start Date End Date Eda Hernandez NP [address] [place] [address] PCP - General 06/21/23 documented as of this encounter
--- OUTSIDE RECORDS SUMMARY | 2024-08-15 10:55 | XMS_ITS | Encounter Summary ---
Author Organization [facility] Address [address] [place] [address] Care Team Providers Care Assistant Media Buyer Name Role Phone Abril Burnett NP Primary Care Provider [phone] Martir Knott MD Primary Care Provider [phone] System, Provider Not In DO Primary Care Provider Unavailable Eda Hernandez NP Primary Care Provider [phone] Reason for Visit * Reason Comments Medication Refill Encounter Details Date Type Department Care Team (Late st Contact Info) Description 07/21/2019 Refill [facility] Gastroenterology, [place] [address] [place] [address] Margarita French MD [address] [place] [address] Lower abdominal pain Social History Tobacco Use Types Packs/Day Years Used Date Smoking Tobacco: Never Smokeless Tobacco: Never Comments No Sex and Gender Information Value Date Recorded Sex Assigned at Not on file Legal Sex Female 9:56 AM EST Gender Identity Not on file Sexual Orientation Not on file documented as of this encounter Miscellaneous Notes * Telephone Encounter - Sara Bhardwaj RN - 07/23/2019 4:12 PM EDT Dose correct Last seen 06-22-2019 documented in this encounter Plan of Treatment Not on file documented as of this encounter Visit Diagnoses Diagnosis Lower abdominal pain Abdominal pain, other specified site documented in this encounter Care Teams Assistant Media Buyer Relationship Specialty Start Date End Date Abril Burnett NP PCP - General Nurse Practitioner 05/29/19 05/10/21 Martir Knott MD [address] [place], [place] [address] PCP - General General Pediatrics 05/11/21 05/11/21 System, Provider Not In, DO PCP - General Family Medicine 05/12/2306/20 Eda Hernandez NP [address] [place] [address] PCP - General 06/21/23 documented as of this encounter
--- OUTSIDE RECORDS SUMMARY | 2024-08-15 10:55 | XMS_ITS | Clinical Summary ---
Author Organization [facility] Address [address] [place] [address] Phone Care Team Providers Care Research Rn Spec Name Role Phone Unavailable Primary Care Provider [...] 08/19/2017 Overview (07/21/2018): S/P therapy and Prozac [id number] (discontinued in the summer 2017 by Carol because she was feeling better), continued to do well with start of high school so stayed off until 06/2018 when family requested a restart due to increasing anxiety. Prozac was prescribed again on 06/27/2018, 10 mg daily for a week then increased to 20mg daily. Therapy was also restarted at [facility] ([facility]). Carol requested a change in medication [...] with the parts she LIKES: Seeing friends, luxembourger class, lunch. Would suggest she do her reading. Practice Your meditations. See [facility] Assessment & Plan (11/08/2018 5:16 PM EDT): You had side effects with meds so try fish oil, several caps a day with food, a natural supplement that can help mood, and see [facility], practice relaxation, get fresh air, exercise, remember how you conquered the roller coasters at [facility]! Assessment & Plan (10/18/2018 5:33 PM EDT): No real change on lexapro, but better since is out of school. 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 Will [...] by Dr. Knott 12/2018) Reported started at [facility] fall 2018, had done online program briefly, [...] Completed 06/12/2020, 015 Procedures * Due to [place] [employer] law, this organization might not be sharing sensitive test results. Procedure Name Priority Date/Time Associated Diagnosis Comments CHLAMYDIA AND GONORRHEA, AMPLIFIED Routine 12/08/2021 9:15 AM EDT Encounter for screening examination for chlamydial infection from Last 3 Months or Most Recently Relevant to Health Maintenance Results * Due to [place] [employer] law, this organization might not be sharing sensitive test results. * Chlamydia and Gonorrhoea, Amplified (12/08/2021 9:15 AM EDT) Chlamydia Trachomatis, DNA Probe NEGATIVE (NEG) [facility] Comment: No Chlamydia Trachomatis RNA detected in this patient's sample ? (REFERENCE RANGE/NORMAL VALUE: NOT DETECTED) ? Note: This test uses setter induction heating equipment- mediated amplification method to detect rRNA from C. Trachomatis URINE GC AMP PROBE NEGATIVE (NEG) [facility] Comment: No Neisseria Gonorrhoeae RNA detected in this patient's sample ? (REFERENCE RANGE/NORMAL VALUE: NOT DETECTED) ? NOTE: This test uses setter induction heating equipment-mediated amplification method to detect rRNA from N.Gonorrhoeae. [...] if indicated. Testing performed or reported by [facility], a Service of [facility], [address] [place] [address] Evin Licea MD, Sports [employer] [facility]# [id number] Urine (Urine) 12/08/2021 9:1 5 AM EDT 12/08/2021 7:58 PM EDT us Hilaria Nguyen MD LAB MICROBIOLOGY - GENERAL O RDERABLES Final Result [facility] from Last 3 Months or Most Recently Relevant to Health Maintenance Insurance [facility] H[facility]
--- OUTSIDE RECORDS SUMMARY | 2024-08-15 10:55 | XMS_ITS | Encounter Summary ---
Author Organization [facility] Address [address] [place] [address] Care Team Providers Care Operations Systems Specialist Name Role Phone System, Provider Not In DO Primary Care Provider Unavailable Eda Hernandez OYSTER PLANTER Primary Care Provider [phone] Reason for Visit * Reason Comments Medication Refill Encounter Details Date Type Department Care Team (Late st Contact Info) Description 08/30/2021 Refill [facility] Gastroenterology, [place] [address] [place] [address] Margarita French MD [address] [place] [address] Constipation, unspecified constipation type Social History Tobacco [...] Telephone Encounter - Iveth Oates RN - 08/31/2021 9:29 AM EDT Last visit: 05/25/21 Next visit: 12/24/21 Weight: 84.8 kg Allergies: reviewed Current dose: refer to refill request from 06/01/21 with dosing for Amitiza documented in this encounter Plan of Treatment Not on file documented as of this encounter Visit Diagnoses Diagnosis Constipation, unspecified constipation type documented in this encounter Care Teams Operations Systems Specialist Relationship Specialty Start Date End Date System, Provider Not In, DO PCP - General Family Medicine 05/12/2306/20 Eda Hernandez NP [address] [place] [address] PCP - General 06/21/23 documented as of this encounter
--- OUTSIDE RECORDS SUMMARY | 2024-08-15 10:55 | XMS_ITS | Encounter Summary ---
Author Organization [facility] Address [address] [place] [address] Phone Care Team Providers Care Psychology Tech Name Role Phone Hilaria Nguyen MD Primary Care Provider + [phone] Reason for Visit * Reason Comments Med Refill Encounter Details Date Type Department Care Team (Late st Contact Info) Description 08/12/2018 Refill [facility] - [place] [address] [place] [address] Claire Toro MD [address] [place] [address] Generalized anxiety disorder Social History Tobacco Use [...] Mom requesting referral to Dr Martir Centeno [facility] for hypnotism. #phone [phone] # fax [phone] . Mom requesting refill on Zoloft ( [...] disorder documented in this encounter Care Teams Psychology Tech Relationship Specialty Start Date End Date Hilaria Nguyen MD [address] [place] [address] PCP - General Pediatrics 12/21/22 05/18/23 documented as of this encounter
--- OUTSIDE RECORDS SUMMARY | 2024-08-15 10:55 | XMS_ITS | Encounter Summary ---
Author Organization [facility] Address [address] [place] [address] Care Team Providers Care Orthopaedic Doctor Name Role Phone Abril Burnett NP Primary Care Provider [phone] Martir Knott MD Primary Care Provider [phone] System, Provider Not In DO Primary Care Provider Unavailable Eda Hernandez NP Primary Care Provider [phone] Reason for Visit * Reason Comments Medication Refill Encounter Details Date Type Department Care Team (Late st Contact Info) Description 05/10/2021 Refill [facility] Gastroenterology, [place] [address] [place] [address] Margarita French MD [address] [place] [address] Constipation, unspecified constipation type Social History Tobacco [...] Telephone Encounter - Mar Gardiner RN - 05/11/2021 8:54 AM EST Last visit: 10/02/2019 Next visit: 05/25/21 Weight: 83.5 kg Allergies: reviewed Current dose: Continue Amitiza 1 pill twice daily documented in this encounter Plan of Treatment Not on file documented as of this encounter Visit Diagnoses Diagnosis Constipation, unspecified constipation type documented in this encounter Care Teams Orthopaedic Doctor Relationship Specialty Start Date End Date Abril Burnett NP PCP - General Nurse Practitioner 05/29/19 05/10/21 Martir Knott MD [address] [facility] 1 [place] [id number] PCP - General General Pediatrics 05/11/21 05/11/21 System, Provider Not In, DO PCP - General Family Medicine 05/12/2306/20 Eda Hernandez NP [address] [place], [place] [id number] PCP - General 06/21/23 documented as of this encounter
--- OUTSIDE RECORDS SUMMARY | 2024-08-15 10:55 | XMS_ITS | Encounter Summary ---
Author Organization [facility] Address [address] [place] [address] Phone Care Team Providers Care Director Of Anesthesia Services Name Role Phone Hilaria Nguyen MD Primary Care Provider [phone] Encounter Details Date Type Department Care Team (Late st Contact Info) Description 11/16/2010 Conversion Encounter Pediatric And Adolescent Medicine - [address] [address] Social History Tobacco Use Types Packs/Day Years [...] on filedocumented in this encounter Care Teams Director Of Anesthesia Services Relationship Specialty Start Date End Date Hilaria Nguyen MD [address] [place] [address] PCP - General Pediatrics 12/21/22 05/18/23 documented as of this encounter
--- OUTSIDE RECORDS SUMMARY | 2024-08-15 10:55 | XMS_ITS | Encounter Summary ---
Author Organization [facility] Address [address] [place] [address] Phone Care Team Providers Care Boiler Setter Name Role Phone Hilaria Nguyen MD Primary Care Provider + [phone] Reason for Visit * Reason Comments Med Refill Encounter Details Date Type Department Care Team (Late st Contact Info) Description 09/07/2018 Refill [facility] - [place] [address] [place] [address] Claire Toro MD [address] [place] [address] Generalized anxiety disorder Social History Tobacco Use [...] disorder documented in this encounter Care Teams Boiler Setter Relationship Specialty Start Date End Date Hilaria Nguyen MD [address] [place] [address] PCP - General Pediatrics 12/21/22 05/18/23 documented as of this encounter
--- OUTSIDE RECORDS SUMMARY | 2024-08-15 10:55 | XMS_ITS | Clinical Summary ---
Author Organization [facility] Address [address] [place] [address] Care Team Providers Care Artist Consultant Name Role Phone HernandezEda ABDIEL Primary Care Provider [phone] Source Comments Please note that some or all of the patient's information could have additional privacy protections. State laws allow health care providers to render certain types of treatment to minors without parental consent. Please do not assume that this information can be shared solely by obtaining just the consent of the patient's parent/guardian. Please determine if all or part of the patient's care was rendered without parent/guardian involvement. And, if so, obtain the minor's consent prior to disclosure.[facility] Allergies No known active allergies Medications MONO-LINYAH 0.25-35 mg-mcg per tablet 0 Active spironolactone (ALDACTONE) 100 MG tablet 0 Active polyethylene glycol (MIRALAX) 17 gram/dose powderIndication s:Constipation, unspecified constipation type Mix 16 capfuls in 64 oz gatorade drink over 4 to 6 hours 595 g 3 0 Active Additional Information Patient not taking.Reported on 10/21/2023 bisacodyL (DULCOLAX, BISACODYL,) 5 mg EC tabletIndication s:Constipation, unspecified constipation type Take 2 tablets prior to drinking MiraLAX for cleanout 5 tablet 0 Active Additional Information Patient not taking.Reported on 10/03/2019 hyoscyamine (LEVSIN/SL) 0.125 mg SL tabletIndication s:Lower abdominal pain TAKE ONE TABLET ( 0.125 MG ) BY MOUTH UNDER THE TONGUE THREE TIMES A DAY NEEDED FOR CRAMPING 90 tablet 1 0 Active Additional Information Patient not taking.Reported on 10/03/2019 norgestimate-eth inyl estradioL (ORTHO TRI-CYCLEN,TRI-S PRINTEC) 0.18/0.215/0.25 mg-35 mcg (28) per tablet Take by mouth 1 Active multivitamin-fol ic acid-biotin (FOTJ-UKJG-QPDCD , YH-QS-RHRMWE,) 400-2,000 mcg Tablet Take by mouth 1 Active iron-vit C-vit N32-nkrof acid (IRON 100 PLUS) 699-340-02-1 xh-tm-fic-mg Tablet Take by mouth 1 Active multivit with minerals/lutein (MULTIVITAMIN 50 PLUS ORAL) Daily, 0 Refills, Maintenance, 06/09/20 14:54:00 EST, Partial fill upon patient request if the prescription is for a schedule II opioid drug. 1 Active spironolactone (ALDACTONE) 10 mg/1 mL suspension Take by mouth 1 Active diclofenac sodium 75 MG delayed release tablet 1 Active ELURYNG 0.12-0.015 mg/24 hr vaginal ring 2 Active lubiprostone (AMITIZA) 24 MCG capsuleIndicatio ns:Constipation, unspecified constipation type TAKE ONE CAPSULE (24 MCG) BY MOUTH TWO TIMES A DAY WITH MEALS. 60 capsule 2 Active Additional Information Patient not taking.Reported on 06/21/2023 imiquimod (ALDARA) 5 % cream 3 Active LINZESS 72 mcg Capsule capsuleIndicatio ns:Constipation, unspecified constipation type TAKE ONE CAPSULE BY MOUTH DAILY 30 capsule 4 4 Active Active Problems No known active problems Encounters Date Type Department Care Team Description 08/10/2024 Telephone [facility] Gastroenterology, [place] [address] [address] Margarita French MD 07/02/2024 1:00 PM EDT - 07/02/2024 11:59 PM EDT Hospital Encounter [facility] [address] [address] Margarita [place] MD Baker, Corey, MD Constipation, unspecified constipation type Discharge Disposition: Home or Self Care from Last 3 Months Family History Medical History Relation Name Comments Diverticulitis Maternal Grandmother Relation Name Status Comments Maternal Grandmother Social History Tobacco Use Types Packs/Day Years Used Date Smoking Tobacco: Never Smokeless Tobacco: Never Tobacco Cessation:Counseling Given: Not Answered Comments No Sex and Gender Information Value Date Recorded Sex Assigned at Not on file Legal Sex Female 9:56 AM EST Gender Identity Not on file Sexual Orientation Not on file Last Filed Vital Signs Vital Sign Reading Time Taken Comments Blood Pressure 110/69 07/02/2024 1:05 PM EDT Pulse 78 07/02/2024 1:05 PM EDT Temperature - - Respiratory Rate - - Oxygen Saturation - - Inhaled Oxygen Concentration - - Weight 91.6 kg (201 lb 15.1 oz) 07/02/2024 1:05 PM EDT Height 165.1 cm (5' 5 ) 07/02/2024 1:05 PM EDT Body Mass Index 33.6 07/02/2024 1:05 PM EDT Plan of Treatment Health Maintenance Due Date Last Done Comments DTaP/TDAP/TD VACCINES (1 - Tdap) 2010 ADOLESCENT HIV SCREENING 2016 COVID-19 Vaccine ( season) 2023 09/16/2020, 08/26/2020 INFLUENZA (#1) 2023 NIRSEVIMAB VACCINES UNDER 8 MONTHS Aged Out No longer eligible b ased on patient's age to complete this topic Results * Manometry Anal (07/02/2024 4:06 PM EDT) Anatomical Region Laterality Modality GI Motility Impressions 07/06/2024 4:53 PM EDT : Normal resting anal pressure and increased squeeze anal pressure. Normal R.A.I.R. Patient had evidence of outlet obstruction on balloon expulsion testing. Additionally, during bear down maneuvers patient had a moderate rectal thrust with an associated increase in anal sphincter tone. 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 Normal/mildly elevated first sensory threshold, normal/mildly decreased urge sensation, and normal maximum tolerable volume. ?? Keisha Cardenas DO Pediatric Gastroenterology Fellow Gonzalo Fishman MD Director, [facility] Division of Digestive Diseases, Hepatology and Nutrition [facility] CC: Margarita French MD Narrative 07/06/2024 4:53 PM EDT Images from the original result were not included. ? [facility] Pediatric Gastroenterology and Nutrition [address] [place] [address], [address] [place] [address] HIGH RESOLUTION ANORECTAL MANOMETRY Procedure Description ? Anorectal Manometry performed with the Given Imaging high-resolution catheter. Resting pressure of anorectal sphincter measured for 30 seconds, followed by 3 sets of squeeze maneuvers and 4 sets of bear down maneuvers, the last with the rectal balloon inflated with 60 ccs of air. Balloon fill maneuver starts with a rapid inflation of multiple different volumes. Initial insufflated volume is as low as 5 mL and sequentially increased to a possible maximum of 120 mL or until a RAIR is thought to be successfully obtained. Each volume is held for 5 seconds, and slowly released, in order to detect a RAIR. Balloon is then slowly inflated and patient's First Sensation, Urge, and Maximum Tolerable Volume are recorded. After removing the catheter, a disposable anorectal balloon is inflated in the patients rectum with 50 ml of saline, and the patient is asked to pass it within 2 minutes. ? Indications ? Constipation RESULTS: Maximum resting anal pressure 106.8 mm Hg (normal 68-112). Maximum squeeze anal pressure 310.8 mm Hg (normal 99-248). Duration of sustained squeeze: 4.6 seconds. Rectoanal pressure differential 40 (Negative differential suggests possible outlet obstruction). R.A.I.R. present at 40 ml. Rectal sensation: First sensation 30 ml (normal 10-30). Urge sensation: 60 ml (normal ??79-96). Maximum tolerable volume: 100 ml (normal 100-300). Repeat rectal sensation: First sensation 50 ml (normal 10-30). Urge sensation 80 ml (normal 79-96). Maximum tolerable volume: 120 ml (normal 100-300). Balloon Expulsion: Unable ??to expel 50 ml balloon in 2 minutes (normal <2 mins). us Margarita French MD GI MOTILITY ORDERABLES Final R esult from Last 3 Months Insurance [facility] Address: [address] [address] Care Teams Artist Consultant Relationship Specialty Start Date End Date Eda Hernandez NP [address] [place] [address] PCP - General 06/21/23
--- OUTSIDE RECORDS SUMMARY | 2024-08-15 10:55 | XMS_ITS | Encounter Summary ---
Author Organization [facility] Address [address] [place] [address] Care Team Providers Care Buyer Renter Name Role Phone Abril Burnett NP Primary Care Provider [phone] Martir Knott MD Primary Care Provider [phone] System, Provider Not In DO Primary Care Provider Unavailable Eda Hernandez OLIVE PITTER Primary Care Provider [phone] Reason for Visit * Reason Comments Medication Refill Encounter Details Date Type Department Care Team (Late st Contact Info) Description 08/22/2019 Refill [facility] Gastroenterology, [place] [address] [place] [address] Margarita French MD [address] [place] [address] Constipation, unspecified constipation type (Primary Dx) Social History Tobacco Use Types Packs/Day Years Used Date Smoking Tobacco: Never Smokeless Tobacco: Never Comments No Sex and Gender Information Value Date Recorded Sex Assigned at Not on file Legal Sex Female 9:56 AM EST Gender Identity Not on file Sexual Orientation Not on file documented as of this encounter Miscellaneous Notes * Telephone Encounter - Mar Gardiner RN - 08/22/2019 8:55 AM EDT Last visit: 06/22/2019 Next visit: 09/25/2019 Weight: 83.5 kg Allergies: reviewed Current dose: Amitiza 1 cap bid documented in this encounter Plan of Treatment Not on file documented as of this encounter Visit Diagnoses Diagnosis Constipation, unspecified constipation type- Primary documented in this encounter Care Teams Buyer Renter Relationship Specialty Start Date End Date Abril Burnett NP PCP - General Nurse Practitioner 05/29/19 05/10/21 Martir Knott MD [address] [facility] 1 [place] [phone] PCP - General General Pediatrics 05/11/21 05/11/21 System, Provider Not In, DO PCP - General Family Medicine 05/12/2306/20 Eda Hernandez NP [address] [place] [address] PCP - General 06/21/23 documented as of this encounter
[2024-08-15 18:09] LABS: C Reactive Protein 1.02 mg/dL (< or = 0.50)
[2024-08-15 18:56] LABS: Erythrocyte Sedimentation Rate 14 MM/HR (0-20)
== END 2024-08-15 09:02 | disposition home or self-care (01) ==
LOC: HO.HKASLDS 09:01
PROVIDERS: PCP Nurse Practitioner Adult Health; Visit Provider Internal Medicine Rheumatology
DX: Z79.899 Other long term (current) drug therapy (principal)
CPT/HCPCS: 36415; 85652; 86140

== ENCOUNTER 2024-12-06 08:38 | Outpatient (AMB) | payer BC, SELFPAY ==
[2024-12-06 08:49] VITALS: BP 130/80; PULSE 112; O2SAT 99; BMI 34.7
--- NOTE | 2024-12-06 08:49 | MHC.OFFVIS ---
Vital Signs 12/06/24 08:49 Height 5 ft 5 in Weight 208 lb 12.444 oz BMI 34.7 BP 130/80 Blood Pressure Location Rt brachial Position Sitting Pulse 112 H Pulse Source Pulse Oximeter Pulse Oximetry (%) 99 Oxygen Delivery Method Room Air Intake Visit Reasons: 3 Months Intake Note: Patent presents today form Chronic bilateral low back pain with sciatica. Accompanied by: Mother Allergies No Known Allergies Allergy (Verified 12/06/24 08:51) HPI HPI 3 Months: Details: SHe is participating in pelvic floor PT due to abnormal anal manometry test. MS 30 min with back pain. Hand feels strange at times with soreness. No joint swelling. She has noted that she is waking up in the morning sometimes with right ankle swelling. She had 2nd degree sprain of right ankle 3 years ago and attributes the swelling to potential scar tissue remaining. She continues to be active during the day. She is taking meloxicam 3 days prior prior to menstruation, during menstruation, 3 days after menstruation and intermittently as needed the rest of the month. [facility] Medical History Back pain Surgical History [place] teeth removed Physical Exam Vital Signs: Last Vital Signs Pulse 112 H 12/06/24 08:49 BP 130/80 12/06/24 08:49 Pulse Ox 99 12/06/24 08:49 Oxygen Delivery Method Room Air 12/06/24 08:49 BMI result Body Mass Index 34.7 Const Other: General: Comfortable CVS: RRR Respiratory: clear to auscultation bilaterally. Good respiratory effort Skin: No lesions seen MSK: Tender right 2nd and 3rd MCP. No tenderness of lumbar spinous process or paraspinal muscles. Normal lumbar flexion. Right SI joint tenderness. Negative CONNIE. No synovitis. Normal range of motion of upper extremities and lower extremities. Assessment & Plan Assessment & Plan (1) Ankylosing spondylitis: Comment: With inflammatory back pain and recent development of right hand pain. Responsive to meloxicam. Rheumatology history: Back pain is multifactorial due to inflammatory back pain from ankylosing spondylitis, HLA B27 positive with elevated CRP 04/2024, 07/2024, L5-S1 sacralization, and myofascial strain. X-ray SI joints have been normal. MRI pelvis 2023 without sacroiliitis. Code(s): M45.9 - Ankylosing spondylitis of unspecified sites in spine Category: Medical Qualifiers: Ankylosing spondylitis location: unspecified site of spine Qualified Code(s): M45.9 - Ankylosing spondylitis of unspecified sites in spine Plan: She will take meloxicam 15 mg daily after dinner Labs for drug monitoring chronic NSAID ordered Inflammatory markers ordered for disease activity She will start physical therapy for Abraxane thinning after she completes pelvic floor physical therapy Log of symptoms requested until next visit Return to clinic in 3 months (2) Back pain: Comment: Likely multifactorial to L5-S1 sacralization, myofascial strain and mild activity from ankylosing spondylitis (mild inflammatory back pain, HLA B27 positive with recent development of mild elevation in CRP on labs from April 2024). Code(s): M54.9 - Dorsalgia, unspecified Category: Medical Qualifiers: Back pain location: low back pain Chronicity: chronic Back pain laterality: bilateral Sciatica presence: without sciatica Qualified Code(s): M54.50 - Low back pain, unspecified; G89.29 - Other chronic pain Plan: See above Orders: Orders Alanine Aminotransferase Today M45.9 - Ankylosing spondylitis of unspecified sites in spine Creatinine Today M45.9 - Ankylosing spondylitis of unspecified sites in spine Erythrocyte Sedimentation Rate Today M45.9 - Ankylosing spondylitis of unspecified sites in spine, Z79.899 - Other [facility] (current[facility] drug therapy Aspartate Amino Transferase Today M45.9 - Ankylosing spondylitis of unspecified sites in spine C Reactive Protein Today M45.9 - Ankylosing spondylitis of unspecified sites in spine, Z79.899 - Other [employer] (current) drug therapy Coding Level of Care Code Est Pt Level 4 (49420) Complex EM visit Add On G2211 Diagnoses Ankylosing spondylitis, unspecified site of spine M45.9 Ankylosing spondylitis location: unspecified site of spine Chronic bilateral low back pain without sciatica M54.50; G89.29 Back pain location: low back pain Chronicity: chronic Back pain laterality: bilateral Sciatica presence: without sciatica
--- OUTSIDE RECORDS SUMMARY | 2024-12-06 09:00 | XMS_ITS | Encounter Summary ---
Author Organization [facility] Address [address] [place] [address] Phone Care Team Providers Care Investigator Name Role Phone Hilaria Nguyen MD Primary Care Provider [phone] Reason for Visit * Reason Comments Med Refill Encounter Details Date Type Department Care Team (Late st Contact Info) Description 09/07/2018 Refill Pediatric [facility] Adolescent Medicine - [place] [address] [place] [address] Claire Toro MD [address] [place] [address] Generalized anxiety disorder Social History Tobacco Use [...] disorder documented in this encounter Care Teams Investigator Relationship Specialty Start Date End Date Hilaria Nguyen MD [address] [place] [address] PCP - General Pediatrics 12/21/22 05/18/23 documented as of this encounter
--- OUTSIDE RECORDS SUMMARY | 2024-12-06 09:00 | XMS_ITS ---
Author Name [facility] Organization Unknown History of Medication Use Medication [...] delayed release tablet 06/30/2020 active iron-vit C-vit L62-zjuup acid (IRON 100 PLUS) 105-758-38-1 yd-bj-rny-mg Tablet Take by mouth 06/09/2020 ac tive iron-vit C-vit P00-qodhl acid (IRON 100 PLUS) 474-583-66-1 xr-ha-jma-mg Tablet Take by mouth 06/09/2020 ac tive multivitamin-folic acid-biotin (MKYE-DITX-BSVVB, WV-RU-QEQUCB,) 400-2,000 mcg Tablet Take by mouth 06/09/2020 a ctive bisacodyL (DULCOLAX, BISACODYL,) 5 mg EC tablet Take 2 tablets prior to drinking MiraLAX for cleanout 06/26/2019 active spironolactone (ALDACTONE) 100 MG tablet 06/13/2019 active Problems Problem Status Onset Date Problem Type Date of Resolution Source Constipation, unspecified constipation type active EncounterDiagnosisAct C [facility] Encounters Encounter Type Encounter Reason Primary Diagnosis Location Date Ambulatory Constipation, unspecified Constipation, unspecified [facility] [place]/2024 Ambulatory Constipation, unspecified Constipation, unspecified [facility] 05/01/2024 Ambulatory Constipation, unspecified Constipation, unspecified [facility] 10/21/2023 Ambulatory Constipation, unspecified Constipation, unspecified [facility] 06/21/2023 Ambulatory [facility] 12/16/2021 Ambulatory [facility] 05/25/2021 Care Team Organization Name Specialty Phone Email Start Date End Da te [facility] DAVID Primary [facility] 06/21/2023 [facility] DAVID Primary Care 06/21/2023 11/07/19 [facility] Prachi Burnett Primary Care 12/24/2021
== END 2024-12-06 09:20 | disposition home or self-care (01) ==
LOC: HO.RHES 08:46
PROVIDERS: PCP Nurse Practitioner Adult Health; Visit Provider Internal Medicine Rheumatology
DX: M45.9 Ankylosing spondylitis of unspecified sites in spine (principal); M54.50 Low back pain, unspecified; G89.29 Other chronic pain
CPT/HCPCS: 99214

== ENCOUNTER 2024-12-06 09:22 | Outpatient (REF) | payer BC, SELFPAY ==
[2024-12-06 14:03] LABS: Alanine Aminotransferase 15 U/L (0-31); Aspartate Amino Transferase 17 U/L (5-31); Estimated Glomerular Filt Rate > 60
== END 2024-12-06 09:23 | disposition home or self-care (01) ==
LOC: HO.HKASLDS 09:22
PROVIDERS: Visit Provider Internal Medicine Rheumatology
DX: M45.9 Ankylosing spondylitis of unspecified sites in spine (principal); Z79.899 Other long term (current) drug therapy
CPT/HCPCS: 36415; 82565; 84450; 84460; 85652; 86140

== ENCOUNTER 2025-03-14 09:24 | Outpatient (AMB) | payer BC, SELFPAY ==
--- NOTE | 2025-03-14 09:30 | A.OFFVIS_ITS ---
Vital Signs 03/14/25 09:31 Height 5 ft 5 in Weight 197 lb 12.074 oz BMI 32.9 BP 130/70 Blood Pressure Location Rt brachial Position Sitting Pulse 100 Pulse Source Pulse Oximeter Pulse Oximetry (%) 98 Oxygen Delivery Method Room Air Intake Visit Reasons: 3months Intake Note: Patent presents today form Chronic bilateral low back pain with sciatica. Accompanied by: Mother Allergies No Known Allergies Allergy (Verified 12/06/24 08:51) HPI HPI 3months: Details: She feels well. She has been taking meloxicam daily in the evening. When she misses a dose she has increased stiffness and pain in her lower back. She is on Zepbound and losing weight. She has lost 11 lb. [facility] Medical History Back pain Surgical History Vermilion teeth removed Physical Exam Vital Signs: Last Vital Signs Pulse 100 03/14/25 09:31 BP 130/70 03/14/25 09:31 Pulse Ox 98 03/14/25 09:31 Oxygen Delivery Method Room Air 03/14/25 09:31 BMI result Body Mass Index 32.9 Const Other: General: Comfortable CVS: RRR Respiratory: clear to auscultation bilaterally. Good respiratory effort Skin: No lesions seen MSK: No tenderness of lumbar spinous process or paraspinal muscles. Normal lumbar flexion. Left SI joint tenderness. Negative CONNIE. No synovitis. Normal range of motion of upper extremities and lower extremities. Assessment & Plan Assessment & Plan (1) Ankylosing spondylitis: Comment: Controlled on meloxicam Rheumatology history: Back pain is multifactorial due to inflammatory back pain from ankylosing spondylitis, HLA B27 positive with elevated CRP 04/2024, 07/2024, L5-S1 sacralization, and myofascial strain. X-ray SI joints have been normal. MRI pelvis 2023 without sacroiliitis. She developed right MCP pain 11/2024. Meloxicam intermittently started 2024 then daily 11/2024- Code(s): M45.9 - Ankylosing spondylitis of unspecified sites in spine Category: Medical Qualifiers: Ankylosing spondylitis location: unspecified site of spine Qualified Code(s): M45.9 - Ankylosing spondylitis of unspecified sites in spine Plan: Continue meloxicam 15 mg daily after dinner Labs for drug monitoring chronic NSAID ordered Inflammatory markers ordered for disease activity Return to clinic in 6 months or sooner if needed (2) Back pain: Comment: Likely multifactorial to L5-S1 sacralization, myofascial strain and mild activity from ankylosing spondylitis (mild inflammatory back pain, HLA B27 positive with recent development of mild elevation in CRP on labs from April 2024). Code(s): M54.9 - Dorsalgia, unspecified Category: Medical Qualifiers: Back pain laterality: bilateral Back pain location: low back pain Chronicity: chronic Sciatica presence: without sciatica Qualified Code(s): M54.50 - Low back pain, unspecified; G89.29 - Other chronic pain Plan: See above Orders: Orders Alanine Aminotransferase Today Z79.1 - USP (current) use of non-steroidal anti-inflammatories (NSAID) Aspartate Amino Transferase Today Z79.1 - terminal gauger supervisor (current) use of non- steroidal anti-inflammatories (NSAID) Creatinine Today Z79.1 - terminal gauger supervisor (current) use of non-steroidal anti- inflammatories (NSAID) Erythrocyte Sedimentation Rate Today Z79.899 - Other penitentiary (current) drug therapy C Reactive Protein Today Z79.899 - Other intermodal truck driver (current) drug therapy XR Hand Bilat min 3v Today M25.531 - Pain in right wrist, M25.532 - Pain in left wrist, M45.9 - Ankylosing spondylitis of unspecified sites in spine Medications: Refilled meloxicam 15 mg PO DAILY PRN 30 tabs 1RF back pain Coding Level of Care Code Est Pt Level 4 (61299) Complex EM visit Add On G2211 Diagnoses Ankylosing spondylitis, unspecified site of spine M45.9 Ankylosing spondylitis location: unspecified site of spine Chronic bilateral low back pain without sciatica M54.50; G89.29 Back pain laterality: bilateral Back pain location: low back pain Chronicity: chronic Sciatica presence: without sciatica
[2025-03-14 09:31] VITALS: BP 130/70; PULSE 100; O2SAT 98; BMI 32.9
--- OUTSIDE RECORDS SUMMARY | 2025-03-14 12:46 | XMS_ITS | Encounter Summary ---
Author Organization [facility] Address [address] [place] [address] Care Team Providers Care Oyster Planter Name Role Phone System, Provider Not In DO Primary Care Provider Unavailable Eda Hernandez DIRT BIKE MECHANIC Primary Care Provider [phone] Reason for Visit * Reason Comments Medication Refill Encounter Details Date Type Department Care Team (Late st Contact Info) Description 06/01/2021 Refill [facility] G[facility]ology, [place] [address] [place] [address] Margarita French MD [address] [place] [address] Constipation, unspecified constipation type Social History Tobacco [...] type documented in this encounter Care Teams Oyster Planter Relationship Specialty Start Date End Date System, Provider Not In, DO PCP - General Family Medicine 05/12/2306/20 Eda Hernandez NP [address] [place] [address] PCP - General 06/21/23 documented as of this encounter
--- OUTSIDE RECORDS SUMMARY | 2025-03-14 12:46 | XMS_ITS | Encounter Summary ---
Author Organization [facility] Address [address] [place] [address] Care Team Providers Care Tooth Cutter Name Role Phone Abril Burnett NP Primary Care Provider [phone] Martir Knott MD Primary Care Provider [phone] System, Provider Not In DO Primary Care Provider Unavailable Eda Hernandez COMMUNITY PLACEMENT WORKER Primary Care Provider [phone] Reason for Visit * Reason Comments Medication Refill Encounter Details Date Type Department Care Team (Late st Contact Info) Description 05/10/2021 Refill [facility] Gastroenterology, [place] [address] [place] [address] Margarita French MD [address] [place] [address] Constipation, unspecified constipation type Social History Tobacco [...] type documented in this encounter Care Teams Tooth Cutter Relationship Specialty Start Date End Date Abril Burnett NP PCP - General Nurse Practitioner 05/29/19 05/10/21 Martir Knott MD [address] [facility] 1 [place] [id number] PCP - General General Pediatrics 05/11/21 05/11/21 System, Provider Not In, DO PCP - General Family Medicine 05/12/2306/20 Eda Hernandez NP [address] [place], [place] [id number] PCP - General 06/21/23 documented as of this encounter
--- OUTSIDE RECORDS SUMMARY | 2025-03-14 12:46 | XMS_ITS | Encounter Summary ---
Author Organization [facility] Address [address] [place] [address] Care Team Providers Care Agricultural Engineering Technologist Name Role Phone Abril Burnett NP Primary Care Provider [phone] Martir Knott MD Primary Care Provider [phone] System, Provider Not In DO Primary Care Provider Unavailable Eda Hernandez INTERPRETER TRANSLATOR Primary Care Provider [phone] Reason for Visit * Reason Comments Medication Refill Encounter Details Date Type Department Care Team (Late st Contact Info) Description 10/22/2019 Refill [facility] Gastroenterology, [place] [address] [place] [address] Margarita French MD [address] [place] [address] Constipation, unspecified constipation type Social History Tobacco [...] type documented in this encounter Care Teams Agricultural Engineering Technologist Relationship Specialty Start Date End Date Abril Burnett NP PCP - General Nurse Practitioner 05/29/19 05/10/21 Martir Knott MD 150 [facility] 1 [place] [phone] PCP - General General Pediatrics 05/11/21 05/11/21 System, Provider Not In, DO PCP - General Family Medicine 05/12/2306/20 Eda Hernandez NP [address] [place] [address] PCP - General 06/21/23 documented as of this encounter
--- OUTSIDE RECORDS SUMMARY | 2025-03-14 12:46 | XMS_ITS | Encounter Summary ---
Author Organization [facility] Address [address] [place] [address] Care Team Providers Care Physics Professor Name Role Phone System, Provider Not In DO Primary Care Provider Unavailable Eda Hernandez SHADOWGRAPH OPERATOR Primary Care Provider [phone] Reason for Visit * Reason Comments Medication Refill Encounter Details Date Type Department Care Team (Late st Contact Info) Description 08/30/2021 Refill [facility] Gastroenterology, [place] [address] [place] [address] Margarita French MD [address] [place] [address] Constipation, unspecified constipation type Social History Tobacco [...] type documented in this encounter Care Teams Physics Professor Relationship Specialty Start Date End Date System, Provider Not In, DO PCP - General Family Medicine 05/12/2306/20 Eda Hernandez NP [address] [place] [address] PCP - General 06/21/23 documented as of this encounter
--- OUTSIDE RECORDS SUMMARY | 2025-03-14 12:46 | XMS_ITS | Encounter Summary ---
Author Organization [facility] Address [address] [place] [address] Care Team Providers Care Remnants Cutter Name Role Phone System, Provider Not In DO Primary Care Provider Unavailable Eda Hernandez OWNER/OPERATOR Primary Care Provider [phone] Reason for Visit * Reason Comments Medication Refill Encounter Details Date Type Department Care Team (Late st Contact Info) Description 07/01/2021 Refill [facility] Gastroenterology, [place] [address] [place] [address] Margarita French MD [address] [place] [address] Constipation, unspecified constipation type Social History Tobacco [...] type documented in this encounter Care Teams Remnants Cutter Relationship Specialty Start Date End Date System, Provider Not In, DO PCP - General Family Medicine 05/12/2306/20 Eda Hernandez NP [address] [place] [address] PCP - General 06/21/23 documented as of this encounter
--- OUTSIDE RECORDS SUMMARY | 2025-03-14 12:47 | XMS_ITS | Encounter Summary ---
Author Organization [facility] Address [address] [place] [address] Care Team Providers Care Production Operations Engineer Name Role Phone System, Provider Not In DO Primary Care Provider Unavailable Eda Hernandez CAPTURE MANAGER Primary Care Provider [phone] Reason for Visit * Reason Comments Medication Refill Encounter Details Date Type Department Care Team (Late st Contact Info) Description 08/01/2021 Refill [facility] Gastroenterology, [place] [address] [place] [address] Margarita French MD [address] [place] [address] Constipation, unspecified constipation type Social History Tobacco [...] type documented in this encounter Care Teams Production Operations Engineer Relationship Specialty Start Date End Date System, Provider Not In, DO PCP - General Family Medicine 05/12/2306/20 Eda Hernandez NP [address] [place] [address] PCP - General 06/21/23 documented as of this encounter
--- OUTSIDE RECORDS SUMMARY | 2025-03-14 12:47 | XMS_ITS | Encounter Summary ---
Author Organization [facility] Address [address] [place] [address] Care Team Providers Care Freight Claim Investigator Name Role Phone Abril Burnett NP Primary Care Provider [phone] Martir Knott MD Primary Care Provider [phone] System, Provider Not In DO Primary Care Provider Unavailable Eda Hernandez HOUSEKEEPING SUPERVISOR HOTEL Primary Care Provider [phone] Reason for Visit * Reason Comments Medication Refill Encounter Details Date Type Department Care Team (Late st Contact Info) Description 08/22/2019 Refill [facility] Gastroenterology, [place] [address] [place] [address] Margarita French MD [address] [place] [address] Constipation, unspecified constipation type (Primary Dx) Social [...] Primary documented in this encounter Care Teams Freight Claim Investigator Relationship Specialty Start Date End Date Abril Burnett NP PCP - General Nurse Practitioner 05/29/19 05/10/21 Martir Knott MD 150 [facility] 1 [place] [id number] PCP - General General Pediatrics 05/11/21 05/11/21 System, Provider Not In, DO PCP - General Family Medicine 05/12/2306/20 Eda Hernandez NP [address] [place] [address] PCP - General 06/21/23 documented as of this encounter
--- OUTSIDE RECORDS SUMMARY | 2025-03-14 12:48 | XMS_ITS | Encounter Summary ---
Author Organization [facility] Address [address] [place] [address] Phone Care Team Providers Care Reconditioning Associate Name Role Phone Hilaria Nguyen MD Primary Care Provider [phone] Reason for Visit * Reason Comments Med Refill Encounter Details Date Type Department Care Team (Late st Contact Info) Description 09/07/2018 Refill [facility] [place] [address] [place] [address] Claire Toro MD [address] [place] [address] Generalized anxiety disorder Social History Tobacco Use [...] disorder documented in this encounter Care Teams Reconditioning Associate Relationship Specialty Start Date End Date Hilaria Nguyen MD [address] [place] [address] PCP - General Pediatrics 12/21/22 05/18/23 documented as of this encounter
--- OUTSIDE RECORDS SUMMARY | 2025-03-14 12:48 | XMS_ITS | Encounter Summary ---
Author Organization [facility] Address [address] [place] [address] Phone Care Team Providers Care Master Rigger Name Role Phone Hilaria Nguyen MD Primary Care Provider [phone] Reason for Visit * Reason Comments Med Refill Encounter Details Date Type Department Care Team (Late st Contact Info) Description 08/12/2018 Refill [facility] - [place] [address] [facility] [place] [address] Claire Toro MD [address] [place] [address] Generalized anxiety disorder Social History Tobacco Use [...] Mom requesting referral to Dr Martir Centeno [facility] for hypnotism. #phone [phone] # fax [phone] . Mom requesting refill on Zoloft ( she has a few left). To Dr Toro for review tomorrow morning. * Telephone Encounter - lCaire Toro MD - 08/16/2018 2:07 PM EDT [...] disorder documented in this encounter Care Teams Master Rigger Relationship Specialty Start Date End Date Hilaria Nguyen MD [address] [place] [address] PCP - General Pediatrics 12/21/22 05/18/23 documented as of this encounter
--- OUTSIDE RECORDS SUMMARY | 2025-03-14 12:48 | XMS_ITS | Clinical Summary ---
Author Organization [facility] Address [address] [place] [address] Phone Care Team Providers Care Director Workforce Management Name Role Phone Unavailable Primary Care Provider [...] 08/19/2017 Overview (07/21/2018): S/P therapy and Prozac [id number] (discontinued in the summer 2017 by Carol because she was feeling better), continued to do well with start of high school so stayed off until 06/2018 when family requested a restart due to increasing anxiety. Prozac was prescribed again on 06/27/2018, 10 mg daily for a week then increased to 20mg daily. Therapy was also restarted at [facility] ([facility]). Carol requested a change in medication [...] with the parts she LIKES: Seeing friends, malay class, lunch. Would suggest she do her reading. Practice Your meditations. See [facility] Assessment & Plan (11/08/2018 5:16 PM EDT): You had side effects with meds so try fish oil, several caps a day with food, a natural supplement that can help mood, and see [facility], practice relaxation, get fresh air, exercise, remember how you conquered the roller coasters at [facility]! Assessment & Plan (10/18/2018 5:33 PM EDT): No real change on lexapro, but better since is out of school. Will have to learn to embrace anxiety like an unwanted but ever present air conditioning unit assembler, and go to school to really get [...] 2:12 PM EST): Back in therapy in [place], going every other to every week. Will [...] by Dr. Knott 12/2018) Reported started at [facility] fall 2018, had done online program briefly, [...] 96 12/08/2021 8:17 AM EDT Temperature 36.7 C (98.1 F) 12/08/2021 8:17 AM EDT Respiratory Rate - - Oxygen Saturation 99% [...] 2-dose series) 06/10/2022 12/08/2021 Influenza Vaccines (#1) 2024 02/12/20, 04/22/2004, 02/04/2004 DTaP,Tdap,and Td Vaccines (7 - Td or Tdap) 12/16/2024 12/16/2014, 06/25/2008, 12/29/2004, Additional history exists COVID-19 Vaccine (3 - 2024-2 6 season) 2024 09/16/2020, 08/26/2020 Hepatitis B Vaccines Completed 03/06/2004, 2003, 2003 [...] Completed 06/12/2020, 015 Procedures * Due to [place] [employer] law, this organization might not be sharing sensitive test results. Procedure Name Priority Date/Time Associated Diagnosis Comments CHLAMYDIA AND GONORRHEA, AMPLIFIED Routine 12/08/2021 9:15 AM EDT Encounter for screening examination for chlamydial infection from Last 3 Months or Most Recently Relevant to Health Maintenance Results * Due to [place] [employer] law, this organization might not be sharing sensitive test results. * Chlamydia and Gonorrhoea, Amplified (12/08/2021 9:15 AM EDT) Chlamydia Trachomatis, DNA Probe NEGATIVE (NEG) [facility] Comment: No Chlamydia Trachomatis RNA detected in this patient's sample (REFERENCE RANGE/NORMAL VALUE: NOT DETECTED) Note: This test uses brand executive- mediated amplification method to detect rRNA from C. Trachomatis URINE GC AMP PROBE NEGATIVE (NEG) [facility] Comment: No Neisseria Gonorrhoeae RNA detected in this patient's sample (REFERENCE RANGE/NORMAL VALUE: NOT DETECTED) NOTE: This test uses brand executive-mediated amplification method to detect rRNA from N.Gonorrhoeae. [...] without risk of sexual abuse. Consult the [facility] if needed. Contact phone number . Therapeutic failure or success cannot be determined with the Aptima Combo2 assay since nucleic acid may persist following appropriate antimicrobial therapy. The Centers for Disease Control and Prevention (CDC) recommends confirmatory retesting using culture or a different nucleic acid amplification test when positive results occur, if indicated. Testing performed or reported by [facility], a Service of [facility], [address] [place] [address] Evin Licea MD, Certified Medical Biller [facility]# [id number] Urine (Urine) 12/08/2021 9:1 5 AM EDT 12/08/2021 7:58 PM EDT us Hilaria Nguyen MD LAB MICROBIOLOGY - GENERAL O RDERABLES Final Result [facility] from Last 3 Months or Most Recently Relevant to Health Maintenance Insurance [facility] HMO [facility] HMO
--- OUTSIDE RECORDS SUMMARY | 2025-03-14 12:48 | XMS_ITS | Encounter Summary ---
Author Organization [facility] Address [address] [place] [address] Care Team Providers Care Market Risk Manager Name Role Phone Abril Burnett NP Primary Care Provider [phone] Martir Knott MD Primary Care Provider [phone] System, Provider Not In DO Primary Care Provider Unavailable Eda Hernandez NP Primary Care Provider [phone] Reason for Visit * Reason Comments Medication Refill Encounter Details Date Type Department Care Team (Late st Contact Info) Description 07/21/2019 Refill [facility] Gastroenterology, [place] [address] [place] [address] Margarita French MD [address] [place] [address] Lower abdominal pain Social History Tobacco Use [...] site documented in this encounter Care Teams Market Risk Manager Relationship Specialty Start Date End Date Abril Burnett NP PCP - General Nurse Practitioner 05/29/19 05/10/21 Martir Knott MD [address] [place] [address] [address] PCP - General General Pediatrics 05/11/21 05/11/21 System, Provider Not In, DO PCP - General Family Medicine 05/12/2306/20 Eda Hernandez NP [address] [place] [address] PCP - General 06/21/23 documented as of this encounter
--- OUTSIDE RECORDS SUMMARY | 2025-03-14 12:49 | XMS_ITS | Encounter Summary ---
Author Organization [facility] Address [address] [place] [address] Phone Care Team Providers Care Division Director Name Role Phone Hilaria Nguyen MD Primary Care Provider [phone] Reason for Visit * Reason Onset Date Comments Med Refill 01/11/2021 Encounter Details Date Type Department Care Team (Late st Contact Info) Description 01/11/2021 Refill [facility] [address] [address] Abril Burnett NP Acne vulgaris Social History [...] acne documented in this encounter Care Teams Division Director Relationship Specialty Start Date End Date Hilaria Nguyen MD [address] [place] [address] PCP - General Pediatrics 12/21/22 05/18/23 documented as of this encounter
--- OUTSIDE RECORDS SUMMARY | 2025-03-14 12:49 | XMS_ITS | Encounter Summary ---
Author Organization [facility] Address [address] [place] [address] Phone Care Team Providers Care Bisque Finisher Name Role Phone Hilaria Nguyen MD Primary Care Provider [phone] Encounter Details Date Type Department Care Team (Late st Contact Info) Description 11/16/2010 Conversion Encounter Pediatric [facility] Adoles[facility] Medicine - [address] [address] Social History Tobacco Use Types Packs/Day Years [...] on filedocumented in this encounter Care Teams Bisque Finisher Relationship Specialty Start Date End Date Hilaria Nguyen MD [address] [place] [address] PCP - General Pediatrics 12/21/22 05/18/23 documented as of this encounter
--- OUTSIDE RECORDS SUMMARY | 2025-03-14 12:51 | XMS_ITS | Clinical Summary ---
Author Organization [facility] Address [address] [place] [address] Care Team Providers Care Paper Coating Machine Operator Name Role Phone HernandezEda ABDIEL Primary Care Provider [phone] Source Comments Please note that some or [...] so, obtain the minor's consent prior to disclosure.[facility] Allergies No known active allergies Medications [...] by mouth 1 Active multivitamin-fol ic acid-biotin (YSAD-XHLP-SCPHG , QS-AH-IKWTUX,) 400-2,000 mcg Tablet Take by mouth 1 Active iron-vit C-vit Y94-miuwq acid (IRON 100 PLUS) 802-004-26-1 sl-wv-fav-mg Tablet Take by mouth 1 Active multivit [...] Active Active Problems No known active problems Family History Medical History Relation Name Comments [...] HIV SCREENING 2016 COVID-19 Vaccine ( season) 2024 09/16/2020, 08/26/2020 INFLUENZA (#1) 2024 NIRSEVIMAB VACCINES UNDER 8 MONTHS Aged Out No longer eligible b ased on patient's age to complete this topic Insurance BLUE CROSS Care Teams Paper Coating Machine Operator Relationship Specialty Start Date End Date Eda Hernandez NP [address] [place], [place] [id number] PCP - General 06/21/23
== END 2025-03-14 09:59 | disposition home or self-care (01) ==
LOC: HO.RHES 09:25
PROVIDERS: PCP Nurse Practitioner Adult Health; Visit Provider Internal Medicine Rheumatology
DX: M45.9 Ankylosing spondylitis of unspecified sites in spine (principal); M54.50 Low back pain, unspecified; G89.29 Other chronic pain
CPT/HCPCS: 99214

== ENCOUNTER 2025-03-14 09:24 | Outpatient (REF) | payer BC, SELFPAY ==
--- NOTE | ~2025-03-14 | XR_ITS ---
EXAMINATION: X-ray bilateral hands CLINICAL INFORMATION: Ankylosing spondylitis COMPARISON: None TECHNIQUE: Bilateral hands each 3 views FINDINGS: Left hand: No fracture or dislocation. No significant joint space narrowing or marginal osteophytes. No osseous erosion. No abnormal soft tissue calcification. Right hand: No fracture or dislocation. No significant joint space narrowing or marginal osteophytes. No osseous erosion. No abnormal soft tissue calcification. XR/XR Hand Bilat min 3v IMPRESSION: No acute findings Electronically signed by: Ervin Welch MD 03/14/2025 04:44 PM EST
[2025-03-14 13:25] LABS: Alanine Aminotransferase 19 U/L (0-31); Aspartate Amino Transferase 23 U/L (5-31); Estimated Glomerular Filt Rate > 60
== END 2025-03-14 09:25 | disposition home or self-care (01) ==
LOC: HO.HKASLDS 09:24
PROVIDERS: PCP Nurse Practitioner Adult Health; Visit Provider Internal Medicine Rheumatology
DX: M45.7 Ankylosing spondylitis of lumbosacral region (principal); M54.50 Low back pain, unspecified; G89.29 Other chronic pain; Z51.81 Encounter for therapeutic drug level monitoring; M25.531 Pain in right wrist; M25.532 Pain in left wrist; Z79.1 Long term (current) use of non-steroidal anti-inflammatories (NSAID); Z79.899 Other long term (current) drug therapy
CPT/HCPCS: 36415; 73130; 82565; 84450; 84460; 85652; 86140

== ENCOUNTER → 2025-03-14 11:02 | Outpatient (BNV) | payer BC, SELFPAY | PROVIDERS: PCP Nurse Practitioner Adult Health; Visit Provider Radiology Diagnostic Ultrasound | DX: M45.9 Ankylosing spondylitis of unspecified sites in spine (principal) | CPT/HCPCS: 73130 ==